=== PATIENT | male | born 1965 | race African-American/Black ===

== ENCOUNTER 2016-12-31 13:48 | Inpatient (IN) | payer OTHER ==
[2016-12-31 16:28] VITALS: BMI 23.4
--- NOTE | 2016-12-31 18:06 | HP ---
Admission ROS [facility] [place] [facility] Chief Complaint: I WANT TO GO TO REHAB Allergies/Adverse Reactions: Allergies Allergy/AdvReac Type Severity Reaction Status Date / Time No Known Allergies Allergy Verified 02/09/16 14:06 History of Present Illness: 51 YEARS OLD MALE WITH LONG HISTORY OF COCAINE NICOTINE DEPENDENCE, DENIES MEDICAL DENIES MENTAL ILLNESS IS ADMITTED TO REHAB Exam Limitations: No Limitations - Ebola screening Have you traveled outside of the country in the last 21 days: No (N) Have you had contact with anyone from an Ebola affected area: No Have you been sick,other than usual withdrawal symptoms: No Do you have a fever: No - Review of Systems Constitutional: Loss of Appetite EENT: reports: Dental Problems (UPPER AND LOWER DENTURE) Respiratory: reports: No Symptoms reported Cardiac: reports: No Symptoms Reported GI: reports: No Symptoms Reported : reports: No Symptoms Reported Musculoskeletal: reports: No Symptoms Reported Integumentary: reports: No Symptoms Reported Neuro: reports: No Symptoms reported Endocrine: reports: No Symptoms Reported Hematology: reports: No Symptoms Reported Psychiatric: reports: No Sypmtoms Reported, Judgement Intact, Mood/Affect Appropiate, Orientated x3 Other Systems: Reviewed and Negative Patient History - Patient Medical History Hx Anemia: No Hx Asthma: No Hx Chronic Obstructive Pulmonary Disease (COPD): No Hx Cancer: No Hx Cardiac Disorders: No Hx Congestive Heart Failure: No Hx Hypertension: No Hx Hypercholesterolemia: No Hx Pacemaker: No HX Cerebrovascular Accident: No Hx Seizures: No Hx Dementia: No Hx Diabetes: No Hx Gastrointestinal Disorders: No Hx Liver Disease: No Hx Genitourinary Disorders: No Hx Sexually Transmitted Disorders: No Hx Renal Disease (ESRD): No Hx Thyroid Disease: No Hx Human Immunodeficiency Virus (HIV): No (01/20 last) Hx Hepatitis C: No Hx Depression: Yes (LAST DOSE A YEAR AGO) Hx Suicide Attempt: No Hx Bipolar Disorder: No Hx Schizophrenia: No - Patient Surgical History Past Surgical History: No Hx Neurologic Surgery: No Hx Cataract Extraction: No Hx Cardiac Surgery: No Hx Lung Surgery: No Hx Breast Surgery: No Hx Breast Biopsy: No Hx Abdominal Surgery: No Hx Appendectomy: No Hx Cholecystectomy: No Hx Genitourinary Surgery: No Hx Orthopedic Surgery: No Other Surgical History: 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 History Hx Alcohol Use: No Hx Substance Use: Yes Substance Use Type: Cocaine Hx Substance Use Treatment: Yes - Substances Abused Cocaine Route: Smoking Frequency: 1-2 times per week Amount used: 5 G Age of first use: 21 Date of Last Use: 12/28/16 Family Disease History - Family Disease History Family Disease History: Diabetes: Mother (ALCOHOLIC), CA: Sister, Other: Father (ALCOHOLIC), Mother Admission Physical Exam [facility] - Vital Signs Vital Signs: Vital Signs - 24 hr 12/31/16 15:49 Temperature 97.9 F Pulse Rate 88 Respiratory 18 Rate Blood Pressure 114/71 - Physical General Appearance: Yes: No Apparent Distress, Appropriately Dressed, Thin HEENTM: Yes: Hearing grossly Normal, Normal ENT Inspection, Normocephalic, Normal Voice Respiratory: Yes: Chest Non-Tender, Lungs Clear, Normal Breath Sounds, No Respiratory Distress, No Accessory Muscle Use Neck: Yes: Supple, Trachea in good position Breast: Yes: Breasts Symetrical Cardiology: Yes: Regular Rhythm, Regular Rate, S1, S2 Abdominal: Yes: Normal Bowel Sounds, Non Tender, Soft Genitourinary: Yes: Within Normal Limits Back: Yes: Normal Inspection Musculoskeletal: Yes: full range of Motion, Gait Steady Extremities: Yes: Normal Inspection, Normal Range of Motion, Non-Tender Neurological: Yes: Fully Oriented, Alert, Motor Strength 5/5, Normal Mood/Affect , Normal Response Integumentary: Yes: Warm Lymphatic: Yes: Within Normal Limits - Diagnostic (1) Nicotine dependence Current Visit: Yes Status: Acute Qualifiers: Nicotine product type: cigarettes Substance use status: in withdrawal Qualified Code(s): F17.213 - Nicotine dependence, cigarettes, with withdrawal (2) Weight loss Current Visit: Yes Status: Acute (3) Cocaine dependence, uncomplicated Current Visit: Yes Status: Acute Cleared for Admission [facility] - Detox or Rehab [facility] Level of Care: Observation Bed Detox Regimen/Protocol: Not Applicable Claeared for Rehab Admission: Yes [facility] Breath Alcohol Content Breath Alcohol Content: 0 Urine Drug Screen - Results Drug Screen Negative: No Urine Drug Screen Results: LOGAN-Cocaine, TCA-Tricyclic Antidepress
[2016-12-31] MEDS ORDERED: P-EPHED 60MG/TRIPROLIDI 2.5MG TABLET PO PRN (18:08)
[2016-12-31] MEDS ORDERED: MENTHOL/PHENOL 1 EACH UD MM PRN (18:08)
[2016-12-31] MEDS ORDERED: MAGNESIUM HYDROX 2400MG/30ML ORAL SUSPENSION 30 ML CUP PO PRN (18:08)
[2016-12-31] MEDS ORDERED: NICOTINE POLACRILEX 2 MG GUM BC PRN (18:08)
[2016-12-31] MEDS ORDERED: MAGNESIUM CITRATE 300 ML BOTTLE PO PRN (18:08)
[2016-12-31] MEDS ORDERED: IBUPROFEN 400 MG TABLET (FP) PO PRN (18:08)
[2016-12-31] MEDS ORDERED: LOPERAMIDE HCL 2 MG CAPSULE PO PRN (18:08)
[2016-12-31] MEDS ORDERED: hydrOXYzine PAMOATE 50 MG CAPSULE (FP) PO PRN (18:08)
[2016-12-31] MEDS ORDERED: ACETAMINOPHEN 325 MG TABLET (FP) PO PRN (18:08)
[2016-12-31] MEDS ORDERED: guaiFENesin/D-METHORPHAN HB 10 ML UNIT-DOSE CUPS PO PRN (18:08)
[2016-12-31] MEDS: THIAMINE HCL 100 MG TABLET (FP) PO SCH (21:27)
[2016-12-31] MEDS: diphenhydrAMINE HCL 50 MG CAPSULE PO PRN (21:28)
[2017-01-01] MEDS: PRENATAL VITAMINS W/ FOLIC ACID TABLET (FP) PO SCH (09:48)
[2017-01-01] MEDS: NICOTINE 14 MG/24 HOURS TOPICAL PATCH TD SCH (09:49)
[2017-01-01 10:05] LABS: URINE APPEARANCE CLEAR; URINE BILIRUBIN NEGATIVE (NEGATIVE); URINE BLOOD NEGATIVE (NEGATIVE); URINE COLOR LTYELLOW; URINE GLUCOSE (UA) NEGATIVE (NEGATIVE); URINE KETONE NEGATIVE (NEGATIVE); URINE LEUK ESTERASE NEGATIVE (NEGATIVE); URINE NITRITE NEGATIVE (NEGATIVE); URINE PROTEIN NEGATIVE (NEGATIVE); URINE UROBILINOGEN NEGATIVE E.U./dl (0.2-1.0)
[2017-01-01 10:12] LABS: MCH 33.5 pg (25.7-33.7); MCHC 33.3 g/dl (32.0-35.9); MEAN CELL VOLUME 100.6 fl (80-96); MEAN PLT VOLUME 8.1 fl (7.5-11.1); PLATELET COUNT 210 K/MM3 (134-434); WHITE BLOOD COUNT 4.5 K/mm3 (4.0-10.0)
[2017-01-01 10:47] LABS: ALBUMIN 3.6 g/dl (3.4-5.0); ALK PHOS 63 U/L (45-117); ANION GAP 8 (8-16); BILIRUBIN,TOTAL 0.5 mg/dL (0.2-1.0); CALCIUM 8.4 mg/dL (8.5-10.1); CO2 28 mmol/L (21-32); GLUCOSE,RANDOM 86 mg/dL (74-106); SGOT/AST 18 U/L (15-37); SGPT/ALT 26 U/L (12-78); TOT PROT 6.2 g/dl (6.4-8.2)
--- NOTE | 2017-01-01 21:04 | EKG ---
Test Reason : Blood Pressure : / mmHG Vent. Rate : 079 BPM Atrial Rate : 079 BPM P-R Int : 148 ms QRS Dur : 082 ms QT Int : 392 ms P-R-T Axes : 058 061 053 degrees QTc Int : 449 ms NORMAL SINUS RHYTHM SEPTAL INFARCT , AGE UNDETERMINED ABNORMAL ECG NO PREVIOUS ECGS AVAILABLE Confirmed by GREG LO MD ([id number]) on 01/01/2017 9:03:52 PM Referred By: Confirmed By:GREG LO MD
[2017-01-01] MEDS: diphenhydrAMINE HCL 50 MG CAPSULE PO PRN ×2 (21:44→22:49)
[2017-01-01] MEDS: MAG HYDROX/AL HYDROX/SIMETH 30 ML UNIT-DOSE CUP PO PRN (21:44)
[2017-01-01] MEDS: THIAMINE HCL 100 MG TABLET (FP) PO SCH (21:44)
[2017-01-02] MEDS: NICOTINE 14 MG/24 HOURS TOPICAL PATCH TD SCH (10:03)
[2017-01-02] MEDS: PRENATAL VITAMINS W/ FOLIC ACID TABLET (FP) PO SCH (10:03)
[2017-01-02] MEDS: MAG HYDROX/AL HYDROX/SIMETH 30 ML UNIT-DOSE CUP PO PRN (20:58)
[2017-01-02] MEDS: THIAMINE HCL 100 MG TABLET (FP) PO SCH (20:59)
[2017-01-02] MEDS: diphenhydrAMINE HCL 50 MG CAPSULE PO PRN (22:56)
[2017-01-03] MEDS: PRENATAL VITAMINS W/ FOLIC ACID TABLET (FP) PO SCH (10:18)
[2017-01-03] MEDS: NICOTINE 14 MG/24 HOURS TOPICAL PATCH TD SCH (10:18)
[2017-01-03] MEDS: MAG HYDROX/AL HYDROX/SIMETH 30 ML UNIT-DOSE CUP PO PRN ×2 (10:38→17:29)
--- NOTE | 2017-01-03 11:06 | HP ---
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 Medical History: History of treatment for gonorrhea.Right sub-mandibular mass ( lipoma).Patient reports that he has a referral for surgery. Psychiatric History: No history of psychiatric hospitalizations.Mr Herrera continues his affiliation with [employer] [facility] (12-step).Not on any psychotropic medications.Mild insomnia is reported and the patient requests only benadryl at bedtime.No history of suicide attempts. Physical/Sexual Abuse/Trauma History: Patient denies. Additional Comment: Urine Drug Screen Results: LOGAN-Cocaine, TCA-Tricyclic Antidepressant.Noted. - Smoking Cessation. Smoking history: Current every day smoker. Have you smoked in the past 12 months: Yes. Aproximately how many cigarettes per day: 4. Cigars Per Day: 0. Hx Chewing Tobacco Use: No. Initiated information on smoking cessation: Yes. 'Breaking Loose' booklet given : 12/31/16. - Substance & Tx. History. Hx Alcohol Use: No. Hx Substance Use: Yes. Substance Use Type: Cocaine. Hx Substance Use Treatment: Yes. - Substances Abused. Cocaine. Route: Smoking. Frequency: 1-2 times per week. Amount used: 5 G. Age of first use: 21. Date of Last Use: 12/28/16. Patient confirms this pattern of substance use in my interview. Vital Signs: Vital Signs - 24 hr 01/03/17 01/03/17 01/03/17 00:30 03:30 06:51 Temperature 97.6 F Pulse Rate 61 Respiratory 18 18 18 Rate Blood Pressure 125/83 Allergies/Adverse Reactions: Allergies Allergy/AdvReac Type Severity Reaction Status Date / Time No Known Allergies Allergy Verified 12/31/16 18:24 - Substance Abuse/Tx History Hx Alcohol Use: Yes Hx Substance Use: Yes (nicotine,alcohol and crack) Substance Use Type: Alcohol, Cocaine Hx Substance Use Treatment: Yes - Admission Criteria Previous failed treatment: Yes Poor recovery environment: Yes Comorbidities: Yes Lacks judgement: Yes Mental Status Exam - Mental Status Exam Alert and Oriented to: Time, Place, Person Cognitive Function: Good Patient Appearance: Well Groomed Mood: Hopeful, Euthymic Affect: Appropriate, Normal Range Patient Behavior: Appropriate, Cooperative Speech Pattern: Clear, Appropriate Voice Loudness: Normal Thought Process: Intact, Goal Oriented Thought Disorder: Not Present Hallucinations: Denies Suicidal Ideation: Denies Homicidal Ideation: Denies Insight/Judgement: Poor Sleep: Fair Appetite: Good Muscle strength/Tone: Normal Gait/Station: Normal Psychiatric Findings - Problem List ([place] 1, 2,3) (1) Cocaine dependence, uncomplicated Current Visit: Yes Status: Acute (2) Alcohol dependence Current Visit: Yes Status: Acute (3) Nicotine dependence Current Visit: Yes Status: Acute Qualifiers: Nicotine product type: cigarettes Substance use status: in withdrawal Qualified Code(s): F17.213 - Nicotine dependence, cigarettes, with withdrawal (4) Lipoma of face Current Visit: Yes Status: Chronic (5) Insomnia Current Visit: Yes Status: Chronic - Initial Treatment Plan Initial Treatment Plan: Psychoeducation.Insomnia is addressed with benadryl 50 mg po hs prn at bedtime.Monitor daily progress.
[2017-01-03] MEDS: diphenhydrAMINE HCL 50 MG CAPSULE PO PRN (22:06)
[2017-01-03] MEDS: THIAMINE HCL 100 MG TABLET (FP) PO SCH (22:06)
[2017-01-04] MEDS: PRENATAL VITAMINS W/ FOLIC ACID TABLET (FP) PO SCH (10:02)
[2017-01-04] MEDS: NICOTINE 14 MG/24 HOURS TOPICAL PATCH TD SCH (10:02)
[2017-01-04] MEDS: diphenhydrAMINE HCL 50 MG CAPSULE PO PRN ×2 (22:19→23:34)
[2017-01-04] MEDS: THIAMINE HCL 100 MG TABLET (FP) PO SCH (22:19)
[2017-01-05] MEDS: PRENATAL VITAMINS W/ FOLIC ACID TABLET (FP) PO SCH (10:33)
[2017-01-05] MEDS: NICOTINE 14 MG/24 HOURS TOPICAL PATCH TD SCH (10:33)
[2017-01-05] MEDS: THIAMINE HCL 100 MG TABLET (FP) PO SCH (21:40)
[2017-01-05] MEDS: diphenhydrAMINE HCL 50 MG CAPSULE PO PRN ×2 (21:41→23:03)
[2017-01-06 07:34] VITALS: BP 139/91; PULSE 82; TEMP 97.5
--- NOTE | 2017-01-06 09:40 | PN ---
Psychiatric Progress Note Vital Signs: Vital Signs Period Temp Pulse Resp BP Sys/Shah Pulse Ox Last 24 Hr 97.5 F 82 18-18 139/91 Date of Session: 01/06/17 Chief Complaint:: Psychiatrist Discharge Note(AMA) HPI: Patient addressing Alcohol and Cocaine Dependence comorbid with Nicotine Dependence ROS: Lipoma of face Current Medications: Active Medications Generic Name Dose Route Start Last Admin Trade Name Freq PRN Reason Stop Dose Admin Acetaminophen 650 mg 12/31/16 18:08 Tylenol - PO Q4H PRN PAIN Al Hydroxide/Mg Hydroxide 30 ml 12/31/16 18:08 01/03/17 17:29 Mylanta Oral Suspension - PO 30 ml Q6H PRN Administration DYSPEPSIA Diphenhydramine HCl 50 mg 12/31/16 18:08 01/05/17 23:03 Benadryl - PO 50 mg HSMR1 PRN Administration INSOMNIA Eucalyptus/Menthol/Phenol/Sorbitol 1 each 12/31/16 18:08 Cepastat Lozenge - MM Q4H PRN SORE THROAT Guaifenesin 10 ml 12/31/16 18:08 Robitussin Dm - PO Q6H PRN COUGH Hydroxyzine Pamoate 50 mg 12/31/16 18:08 Vistaril - PO Q4H PRN AGITATION Ibuprofen 400 mg 12/31/16 18:08 Motrin - PO Q6H PRN SEVERE PAIN Loperamide HCl 4 mg 12/31/16 18:08 Imodium - PO Q6H PRN DIARRHEA Magnesium Citrate 300 ml 12/31/16 18:08 Citroma - PO Q48H PRN CONSTIPATION Magnesium Hydroxide 30 ml 12/31/16 18:08 Milk Of Magnesia - PO DAILY PRN CONSTIPATION Nicotine 14 mg 01/01/17 10:00 01/05/17 10:33 Nicoderm Patch - TD Not Given DAILY ABI Nicotine Polacrilex 2 mg 12/31/16 18:08 Nicorette Gum - BC Q2H PRN NICOTINE REPLACEMENT RX Multivit/Folic Acid/Iron 1 tab 01/01/17 10:00 01/05/17 10:33 Vitamins (Sjr) - PO 1 tab DAILY ABI Administration Pseudoephedrine/Triprolidine 1 combo 12/31/16 18:08 Actifed - PO TID PRN NASAL CONGESTION Thiamine HCl 100 mg 12/31/16 22:00 01/05/17 21:40 Vitamin B1 - PO 100 mg HS ABI Administration Current Side Effect: No Lab tests ordered: Yes Lab tests reviewed: Yes Provider note:: Patient requets to leave against medical advice. 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 I'm not ready for this yet" He will not elaborate more on his comment. He is determined to leave against medical advice despite being encouraged to stay and complete this program. He is stable for leaving against medical advice Total face to face time:: 25 Mental Status Exam - Mental Status Exam Alert and Oriented to: Time, Place, Person Cognitive Function: Fair Patient Appearance: Well Groomed Mood: Hopeful, Euthymic Affect: Appropriate Patient Behavior: Cooperative Speech Pattern: Clear Voice Loudness: Normal Thought Process: Intact Thought Disorder: Not Present Hallucinations: Denies Suicidal Ideation: Denies Homicidal Ideation: Denies Insight/Judgement: Poor Sleep: Fair Appetite: Good Muscle strength/Tone: Normal Gait/Station: Normal Psychiatric Treatment Plan - Problem List (1) Alcohol dependence Current Visit: Yes (2) Cocaine dependence, uncomplicated Current Visit: Yes (3) Nicotine dependence Current Visit: Yes Qualifiers: Nicotine product type: cigarettes Substance use status: in withdrawal Qualified Code(s): F17.213 - Nicotine dependence, cigarettes, with withdrawal (4) Lipoma of face Current Visit: Yes Initial treatment plan: Patient is leaving AMA
== END 2017-01-06 09:45 | disposition left against medical advice (07) | DRG 770 ==
LOC: YASAS 13:48 → Y3W 18:44
PROVIDERS: ADMIT Psychiatry & Neurology Psychiatry; ATTEND Psychiatry & Neurology Psychiatry
PROC: HZ42ZZZ Group Counseling for Substance Abuse Treatment, Cognitive-Behavioral (ICD-10-PCS; principal; 2017-01-06)
DX: F10.230 Alcohol dependence with withdrawal, uncomplicated (principal); F14.20 Cocaine dependence, uncomplicated; F17.213 Nicotine dependence, cigarettes, with withdrawal; G47.00 Insomnia, unspecified; D17.0 Benign lipomatous neoplasm of skin and subcutaneous tissue of head, face and neck; R63.4 Abnormal weight loss; Z68.23 Body mass index [BMI] 23.0-23.9, adult
CPT/HCPCS: 36415; 80053; 81003; 85027; 86593; 93005; 93010

== ENCOUNTER 2017-04-18 10:24 | Inpatient (IN) | payer OTHER ==
[2017-04-18 11:17] VITALS: BMI 22.8
--- NOTE | 2017-04-18 13:05 | HP ---
CIWA Score - CIWA Score Nausea/Vomitin Muscle Tremors: 3 Anxiety: 3 Agitation: 2 Paroxysmal Sweats: 2 Orientation: 0-Oriented Tacttile Disturbances: 1-Very Mild Itch/Numbness Auditory Disturbances: 1-Very Mild Visual Disturbances: 1-Very Mild Sensitivity Headache: 2-Mild CIWA-Ar Total Score: 18 Admission ROS [facility] - HPI Chief Complaint: I NEED HELP TO STOP DRINKING ALCOHOL,COCAINE Allergies/Adverse Reactions: Allergies Allergy/AdvReac Type Severity Reaction Status Date / Time No Known Allergies Allergy Verified 04/18/17 12:56 History of Present Illness: THIS 51 YEARS OLD MALE WITH ALCOHOL AND COCAINE DEPENDENCE,SEEKING HELP FOR DETOX,LAST REHAB IN [facility] 12/28/16 TO 01/06/17 SYNCOPE NICOTINE DEPENDENCE LIPOMA OF MANDIBULAR AREA FOR 3 YEARS LONGEST PERIOD OF SOBRIETY 3 YEARS - Ebola screening Have you traveled outside of the country in the last 21 days: No Have you had contact with anyone from an Ebola affected area: No Have you been sick,other than usual withdrawal symptoms: No Do you have a fever: No - Review of Systems Constitutional: Loss of Appetite, Malaise, Night Sweats, Changes in sleep, Weakness, Unintentional Wgt. Loss EENT: reports: Tearing, Nose Congestion, Other (MASS OF RIGHT MANDIBULAR AREA SIZE 5X3 CM,MOVABLE) Respiratory: reports: No Symptoms reported Cardiac: reports: No Symptoms Reported GI: reports: Diarrhea, Nausea, Vomiting, Abdominal cramping : reports: No Symptoms Reported Musculoskeletal: reports: Back Pain, Muscle Pain Integumentary: reports: Dryness Neuro: reports: Headache, Tremors Endocrine: reports: No Symptoms Reported Hematology: reports: No Symptoms Reported Psychiatric: reports: No Sypmtoms Reported, Judgement Intact, Mood/Affect Appropiate, Orientated x3 Patient History - Patient Medical History Hx Anemia: No Hx Asthma: No Hx Chronic Obstructive Pulmonary Disease (COPD): No Hx Cancer: No Hx Cardiac Disorders: No Hx Congestive Heart Failure: No Hx Hypertension: No Hx Hypercholesterolemia: No Hx Pacemaker: No HX Cerebrovascular Accident: No Hx Seizures: No Hx Dementia: No Hx Diabetes: No Hx Gastrointestinal Disorders: No Hx Liver Disease: No Hx Genitourinary Disorders: No Hx Sexually Transmitted Disorders: No Hx Renal Disease (ESRD): No Hx Thyroid Disease: No Hx Human Immunodeficiency Virus (HIV): No (LAST 01/21 NEGATIVE) Hx Hepatitis C: No Hx Depression: No Hx Suicide Attempt: No Hx Bipolar Disorder: No Hx Schizophrenia: No Other Medical History: NO SUICIDAL,NO HOMICIDAL - Patient Surgical History Past Surgical History: No Hx Neurologic Surgery: No Hx Cataract Extraction: No Hx Cardiac Surgery: No Hx Lung Surgery: No Hx Breast Surgery: No Hx Breast Biopsy: No Hx Abdominal Surgery: No Hx Appendectomy: No Hx Cholecystectomy: No Hx Genitourinary Surgery: No Hx Section: No Hx Orthopedic Surgery: No Anesthesia Reaction: No - PPD History Previous Implant?: Yes Documented Results: Positive w/o proof Date: 02/11/16 Results: 0 mm PPD to be Administered?: Yes - Smoking Cessation Smoking history: Current every day smoker Have you smoked in the past 12 months: Yes Aproximately how many cigarettes per day: 4 Cigars Per Day: 0 Hx Chewing Tobacco Use: No Initiated information on smoking cessation: Yes 'Breaking Loose' booklet given: 04/18/17 - Substance & Tx. History Hx Alcohol Use: Yes Hx Substance Use: Yes Substance Use Type: Alcohol, Cocaine Hx Substance Use Treatment: Yes ([facility] 12/27/16 TO 01/21/17) - Substances Abused Alcohol Route: Oral Frequency: Daily Amount used: 6pk beer/ 1 pint bourbon Age of first use: 17 Date of Last Use: 04/18/17 Crack Route: Smoking Frequency: Daily Amount used: 2 grams Age of first use: 19 Date of Last Use: 04/17/17 Family Disease History - Family Disease History Family Disease History: Diabetes: Mother (ALCOHOLIC ), CA: Sister, Other : Father (ALCOHOLIC), Mother Admission Physical Exam [facility] - Vital Signs Vital Signs: Vital Signs - 24 hr 04/18/17 11:11 Temperature 96.8 F L Pulse Rate 106 H Respiratory 18 Rate Blood Pressure 123/71 - Physical General Appearance: Yes: Moderate Distress, Tremorous, Irritable, Sweating, Anxious HEENTM: Yes: Hearing grossly Normal, Normal ENT Inspection, MYLES, Pharynx Normal , Other (MASS OF RIGHT MANDIBULAR AREA SIZE 5X3 CMS MOVABLE NO PAIN) Respiratory: Yes: Lungs Clear, Normal Breath Sounds, No Respiratory Distress Neck: Yes: Within Normal Limits, Trachea in good position Breast: Yes: Within Normal Limits Cardiology: Yes: Within Normal Limits, Regular Rhythm, Regular Rate, S1, S2 Abdominal: Yes: Within Normal Limits, Normal Bowel Sounds, Non Tender, Flat, Soft Genitourinary: Yes: Within Normal Limits Back: Yes: Within Normal Limits Musculoskeletal: Yes: Within Normal Limits, Back pain, Muscle Pain Extremities: Yes: Normal Inspection, Normal Range of Motion, Tremors 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 NML intact, Fully Oriented, Alert, Motor Strength 5/5, Normal Mood/Affect Integumentary: Yes: Dry Lymphatic: Yes: Within Normal Limits - Diagnostic (1) Alcohol dependence with uncomplicated withdrawal Current Visit: No Status: Acute (2) Cocaine dependence, uncomplicated Current Visit: No Status: Acute (3) Nicotine dependence Current Visit: No Status: Acute Qualifiers: Nicotine product type: cigarettes Substance use status: in withdrawal Qualified Code(s): F17.213 - Nicotine dependence, cigarettes, with withdrawal (4) Syncope Current Visit: No Status: Acute (5) Weight loss Current Visit: No Status: Acute (6) Lipoma of face Current Visit: No Status: Chronic Cleared for Admission [facility] - Detox or Rehab [facility] Level of Care: Medically Managed Detox Regimen/Protocol: Librium [facility] Breath Alcohol Content Breath Alcohol Content: 0.20 Urine Drug Screen - Results Drug Screen Negative: No Urine Drug Screen Results: LOGAN-Cocaine, TCA-Tricyclic Antidepress
[2017-04-18] MEDS ORDERED: MAGNESIUM CITRATE 300 ML BOTTLE PO PRN (13:17)
[2017-04-18] MEDS ORDERED: P-EPHED 60MG/TRIPROLIDI 2.5MG TABLET PO PRN (13:17)
[2017-04-18] MEDS ORDERED: MAGNESIUM HYDROX 2400MG/30ML ORAL SUSPENSION 30 ML CUP PO PRN (13:17)
[2017-04-18] MEDS ORDERED: MENTHOL/PHENOL 1 EACH UD MM PRN (13:17)
[2017-04-18] MEDS ORDERED: hydrOXYzine PAMOATE 50 MG CAPSULE (FP) PO PRN (13:17)
[2017-04-18] MEDS ORDERED: LOPERAMIDE HCL 2 MG CAPSULE PO PRN (13:17)
[2017-04-18] MEDS ORDERED: ACETAMINOPHEN 325 MG TABLET (FP) PO PRN (13:17)
[2017-04-18] MEDS ORDERED: guaiFENesin/D-METHORPHAN HB 10 ML UNIT-DOSE CUPS PO PRN (13:17)
[2017-04-18] MEDS ORDERED: IBUPROFEN 400 MG TABLET (FP) PO PRN (13:17)
[2017-04-18] MEDS ORDERED: chlordiazePOXIDE HCL 25 MG CAPSULE PO PRN (13:17)
[2017-04-18] MEDS ORDERED: chlordiazePOXIDE HCL 25 MG CAPSULE PO ONE (14:02)
[2017-04-18] MEDS: chlordiazePOXIDE HCL 25 MG CAPSULE PO SCH ×2 (17:20→22:10)
[2017-04-18 17:37] LABS: URINE APPEARANCE CLEAR; URINE BILIRUBIN NEGATIVE (NEGATIVE); URINE BLOOD NEGATIVE (NEGATIVE); URINE COLOR AMBER; URINE GLUCOSE (UA) NEGATIVE (NEGATIVE); URINE KETONE 1+ (NEGATIVE); URINE LEUK ESTERASE NEGATIVE (NEGATIVE); URINE NITRITE NEGATIVE (NEGATIVE); URINE UROBILINOGEN 2.0 E.U/dl E.U./dl (0.2-1.0)
[2017-04-18 18:28] LABS: URINE PROTEIN 1+ (NEGATIVE)
[2017-04-18 18:29] LABS: URINE RBC 3 /hpf (0-3); URINE WBC 3 /hpf (3-5)
[2017-04-18 18:30] LABS: URINE BACTERIA RARE /hpf (NONE SEEN); URINE HYALINE CAST 3 /lpf; URINE MUCUS MANY
[2017-04-18] MEDS: THIAMINE HCL 100 MG TABLET (FP) PO SCH (22:10)
[2017-04-18] MEDS: diphenhydrAMINE HCL 50 MG CAPSULE PO PRN (23:54)
[2017-04-19] MEDS: chlordiazePOXIDE HCL 25 MG CAPSULE PO SCH ×4 (05:48→22:05)
[2017-04-19 10:06] LABS: MCH 33.4 pg (25.7-33.7); MCHC 33.7 g/dl (32.0-35.9); MEAN CELL VOLUME 99.3 fl (80-96); MEAN PLT VOLUME 8.4 fl (7.5-11.1); PLATELET COUNT 219 K/MM3 (134-434); WHITE BLOOD COUNT 3.6 K/mm3 (4.0-10.0)
[2017-04-19] MEDS: PRENATAL VITAMINS W/ FOLIC ACID TABLET (FP) PO SCH (10:10)
[2017-04-19] MEDS ORDERED: ONDANSETRON *ODT* 4 MG TABLET SL PRN (10:15)
--- NOTE | 2017-04-19 10:15 | PN ---
[facility] CIWA - CIWA Score Nausea/Vomitin-No Nausea/No Vomiting Muscle Tremors: 4-Moderate,w/Arms Extend Anxiety: 4-Mod. Anxious/Guarded Agitation: 4-Moderately Restless Paroxysmal Sweats: 1-Minimal Palms Moist Orientation: 0-Oriented Tacttile Disturbances: 3-Moderate Itch/Numb/Burn Auditory Disturbances: 0-None Visual Disturbances: 0-None Headache: 0-None Present CIWA-Ar Total Score: 16 [facility]HS Progress Note (SOAP) Subjective: ANXIETY,TREMORS,NAUSEA,INTERMITTENT SLEEP. Objective: 04/19/17 10:14 Vital Signs Temperature 97.0 F L 04/19/17 09:25 Pulse Rate 79 04/19/17 09:25 Respiratory Rate 18 04/19/17 09:25 Blood Pressure 128/82 04/19/17 09:25 O2 Sat by Pulse Oximetry (%) Laboratory Last Values WBC 3.6 K/mm3 (4.0-10.0) L 04/19/17 06:00 RBC 4.40 M/mm3 (4.00-5.60) 04/19/17 06:00 Hgb 14.7 GM/dL (11.7-16.9) D 04/19/17 06:00 Hct 43.7 % (35.4-49) 04/19/17 06:00 MCV 99.3 fl (80-96) H 04/19/17 06:00 MCHC 33.7 g/dl (32.0-35.9) 04/19/17 06:00 RDW 13.0 % (11.9-15.9) 04/19/17 06:00 Plt Count 219 K/MM3 (134-434) 04/19/17 06:00 MPV 8.4 fl (7.5-11.1) 04/19/17 06:00 Urine Color Jennifer 04/18/17 15:00 Urine Appearance Clear 04/18/17 15:00 Urine pH 5.0 (5.0-8.0) 04/18/17 15:00 Ur Specific [place] >= 1.030 (1.005-1.025) H 04/18/17 15:00 Urine Protein 1+ (NEGATIVE) H 04/18/17 15:00 Urine Glucose (UA) Negative (NEGATIVE) 04/18/17 15:00 Urine Ketones 1+ (NEGATIVE) H 04/18/17 15:00 Urine Blood Negative (NEGATIVE) 04/18/17 15:00 Urine Nitrite Negative (NEGATIVE) 04/18/17 15:00 Urine Bilirubin Negative (NEGATIVE) 04/18/17 15:00 Urine Urobilinogen 2.0 e.u/dl E.U./dl (0.2-1.0) 04/18/17 15:00 Ur Leukocyte Esterase Negative (NEGATIVE) 04/18/17 15:00 Urine RBC 3 /hpf (0-3) 04/18/17 15:00 Urine WBC 3 /hpf (3-5) 04/18/17 15:00 Ur Epithelial Cells Rare /hpf (FEW) 04/18/17 15:00 Urine Bacteria Rare /hpf (NONE SEEN) 04/18/17 15:00 Hyaline Casts 3 /lpf 04/18/17 15:00 Urine Mucus Many 04/18/17 15:00 Assessment: 04/19/17 10:14 WITHDRAWAL SX Plan: CONTINUE DETOX
[2017-04-19 10:54] LABS: ALBUMIN 4.3 g/dl (3.4-5.0); CALCIUM 8.9 mg/dL (8.5-10.1); COCKROFT - GAULT 63.96; CREATININE 1.3 mg/dL (0.7-1.3); TOT PROT 7.2 g/dl (6.4-8.2)
--- NOTE | 2017-04-19 11:00 | EKG ---
Test Reason : Blood Pressure : / mmHG Vent. Rate : 087 BPM Atrial Rate : 087 BPM P-R Int : 138 ms QRS Dur : 082 ms QT Int : 376 ms P-R-T Axes : 063 065 065 degrees QTc Int : 452 ms NORMAL SINUS RHYTHM NONSPECIFIC T WAVE ABNORMALITY ABNORMAL ECG WHEN COMPARED WITH ECG OF 31-DEC-2016 23:09, T WAVE VARIATION Confirmed by FAITH CUEVAS MD ([id number]) on 04/19/2017 10:59:45 AM Referred By: Mina Lowe Confirmed By:FAITH CUEVAS MD
[2017-04-19] MEDS: MAG HYDROX/AL HYDROX/SIMETH 30 ML UNIT-DOSE CUP PO PRN (20:24)
[2017-04-19] MEDS: THIAMINE HCL 100 MG TABLET (FP) PO SCH (22:05)
[2017-04-19] MEDS: diphenhydrAMINE HCL 50 MG CAPSULE PO PRN (23:30)
[2017-04-20] MEDS: chlordiazePOXIDE HCL 25 MG CAPSULE PO SCH ×2 (05:35→10:02)
[2017-04-20] MEDS: MAG HYDROX/AL HYDROX/SIMETH 30 ML UNIT-DOSE CUP PO PRN (05:36)
--- NOTE | 2017-04-20 09:53 | PN ---
[facility] CIWA - CIWA Score Nausea/Vomitin (DIARRHEA) Muscle Tremors: 4-Moderate,w/Arms Extend Anxiety: 3 Agitation: 4-Moderately Restless Paroxysmal Sweats: 1-Minimal Palms Moist Orientation: 0-Oriented Tacttile Disturbances: 2-Mild Itch/Numbness/Burn Auditory Disturbances: 0-None Visual Disturbances: 0-None Headache: 0-None Present CIWA-Ar Total Score: 19 S Progress Note (SOAP) Subjective: ANXIETY,"JITTERY',DIARRHEA. Objective: 04/20/17 09:52 Vital Signs Temperature 96.9 F L 04/20/17 09:41 Pulse Rate 89 04/20/17 09:41 Respiratory Rate 18 04/20/17 09:41 Blood Pressure 135/85 04/20/17 09:41 O2 Sat by Pulse Oximetry (%) Laboratory Last Values WBC 3.6 K/mm3 (4.0-10.0) L 04/19/17 06:00 RBC 4.40 M/mm3 (4.00-5.60) 04/19/17 06:00 Hgb 14.7 GM/dL (11.7-16.9) D 04/19/17 06:00 Hct 43.7 % (35.4-49) 04/19/17 06:00 MCV 99.3 fl (80-96) H 04/19/17 06:00 MCHC 33.7 g/dl (32.0-35.9) 04/19/17 06:00 RDW 13.0 % (11.9-15.9) 04/19/17 06:00 Plt Count 219 K/MM3 (134-434) 04/19/17 06:00 MPV 8.4 fl (7.5-11.1) 04/19/17 06:00 Sodium 141 mmol/L (136-145) 04/19/17 06:00 Potassium 3.6 mmol/L (3.5-5.1) 04/19/17 06:00 Chloride 102 mmol/L (98-107) 04/19/17 06:00 Carbon Dioxide 24 mmol/L (21-32) 04/19/17 06:00 Anion Gap 15 (8-16) 04/19/17 06:00 BUN 13 mg/dL (7-18) 04/19/17 06:00 Creatinine 1.3 mg/dL (0.7-1.3) D 04/19/17 06:00 Creat Clearance w eGFR 57.97 (>60) 04/19/17 06:00 Random Glucose 138 mg/dL (74-106) H D 04/19/17 06:00 Calcium 8.9 mg/dL (8.5-10.1) 04/19/17 06:00 Total Bilirubin 1.0 mg/dL (0.2-1.0) D 04/19/17 06:00 AST 17 U/L (15-37) 04/19/17 06:00 ALT 24 U/L (12-78) 04/19/17 06:00 Alkaline Phosphatase 72 U/L (45-117) 04/19/17 06:00 Total Protein 7.2 g/dl (6.4-8.2) 04/19/17 06:00 Albumin 4.3 g/dl (3.4-5.0) 04/19/17 06:00 Urine Color Jennifer 04/18/17 15:00 Urine Appearance Clear 04/18/17 15:00 Urine pH 5.0 (5.0-8.0) 04/18/17 15:00 Ur Specific [place] >= 1.030 (1.005-1.025) H 04/18/17 15:00 Urine Protein 1+ (NEGATIVE) H 04/18/17 15:00 Urine Glucose (UA) Negative (NEGATIVE) 04/18/17 15:00 Urine Ketones 1+ (NEGATIVE) H 04/18/17 15:00 Urine Blood Negative (NEGATIVE) 04/18/17 15:00 Urine Nitrite Negative (NEGATIVE) 04/18/17 15:00 Urine Bilirubin Negative (NEGATIVE) 04/18/17 15:00 Urine Urobilinogen 2.0 e.u/dl E.U./dl (0.2-1.0) 04/18/17 15:00 Ur Leukocyte Esterase Negative (NEGATIVE) 04/18/17 15:00 Urine RBC 3 /hpf (0-3) 04/18/17 15:00 Urine WBC 3 /hpf (3-5) 04/18/17 15:00 Ur Epithelial Cells Rare /hpf (FEW) 04/18/17 15:00 Urine Bacteria Rare /hpf (NONE SEEN) 04/18/17 15:00 Hyaline Casts 3 /lpf 04/18/17 15:00 Urine Mucus Many 04/18/17 15:00 RPR Titer Nonreactive (NONREACTIVE) 04/19/17 06:00 Assessment: 04/20/17 09:52 WITHDRAWAL SX Plan: CONTINUE DETOX
[2017-04-20] MEDS: PRENATAL VITAMINS W/ FOLIC ACID TABLET (FP) PO SCH (10:02)
[2017-04-20] MEDS: chlordiazePOXIDE 5 MG CAPSULE PO SCH ×2 (17:15→22:01)
[2017-04-20] MEDS: diphenhydrAMINE HCL 50 MG CAPSULE PO PRN (22:01)
[2017-04-20] MEDS: THIAMINE HCL 100 MG TABLET (FP) PO SCH (22:01)
[2017-04-21] MEDS: chlordiazePOXIDE 5 MG CAPSULE PO SCH ×2 (05:30→10:05)
[2017-04-21] MEDS: PRENATAL VITAMINS W/ FOLIC ACID TABLET (FP) PO SCH (10:05)
--- NOTE | 2017-04-21 11:31 | PN ---
[facility] Progress Note (SOAP) Subjective: ANXIETY, SWEATS, INTERMITTENT SLEEP. Objective: 04/21/17 11:31 Vital Signs Temperature 97.0 F L 04/21/17 09:06 Pulse Rate 89 04/21/17 09:06 Respiratory Rate 18 04/21/17 09:06 Blood Pressure 139/89 04/21/17 09:06 O2 Sat by Pulse Oximetry (%) Assessment: 04/21/17 11:31 WITHDRAWAL SX Plan: CONTINUE DETOX
[2017-04-21] MEDS: MAG HYDROX/AL HYDROX/SIMETH 30 ML UNIT-DOSE CUP PO PRN (17:25)
[2017-04-21] MEDS: chlordiazePOXIDE HCL 10 MG CAPSULE PO SCH ×2 (17:25→22:03)
[2017-04-21] MEDS: THIAMINE HCL 100 MG TABLET (FP) PO SCH (22:03)
[2017-04-21] MEDS: diphenhydrAMINE HCL 50 MG CAPSULE PO PRN ×2 (22:03→23:38)
[2017-04-22] MEDS: chlordiazePOXIDE HCL 10 MG CAPSULE PO SCH ×2 (05:50→11:55)
[2017-04-22 06:15] VITALS: BP 130/88; PULSE 79; TEMP 96.3
[2017-04-22] MEDS: PRENATAL VITAMINS W/ FOLIC ACID TABLET (FP) PO SCH (09:39)
--- NOTE | 2017-04-22 09:49 | DS ---
[facility] Detox Discharge Summary Admission Date: 04/18/17 Discharge Date: 04/22/17 - History Present History: Alcohol Dependence Pertinent Past History: LIPOMA RIGHT JAW - Physical Exam Results Vital Signs: Vital Signs Temperature 96.3 F L 04/22/17 06:14 Pulse Rate 79 04/22/17 06:14 Respiratory Rate 18 04/22/17 06:14 Blood Pressure 130/88 04/22/17 06:14 O2 Sat by Pulse Oximetry (%) Pertinent Admission Physical Exam Findings: WITHDRAWAL SX Laboratory Last Values WBC 3.6 K/mm3 (4.0-10.0) L 04/19/17 06:00 RBC 4.40 M/mm3 (4.00-5.60) 04/19/17 06:00 Hgb 14.7 GM/dL (11.7-16.9) D 04/19/17 06:00 Hct 43.7 % (35.4-49) 04/19/17 06:00 MCV 99.3 fl (80-96) H 04/19/17 06:00 MCHC 33.7 g/dl (32.0-35.9) 04/19/17 06:00 RDW 13.0 % (11.9-15.9) 04/19/17 06:00 Plt Count 219 K/MM3 (134-434) 04/19/17 06:00 MPV 8.4 fl (7.5-11.1) 04/19/17 06:00 Sodium 141 mmol/L (136-145) 04/19/17 06:00 Potassium 3.6 mmol/L (3.5-5.1) 04/19/17 06:00 Chloride 102 mmol/L (98-107) 04/19/17 06:00 Carbon Dioxide 24 mmol/L (21-32) 04/19/17 06:00 Anion Gap 15 (8-16) 04/19/17 06:00 BUN 13 mg/dL (7-18) 04/19/17 06:00 Creatinine 1.3 mg/dL (0.7-1.3) D 04/19/17 06:00 Creat Clearance w eGFR 57.97 (>60) 04/19/17 06:00 Random Glucose 138 mg/dL (74-106) H D 04/19/17 06:00 Calcium 8.9 mg/dL (8.5-10.1) 04/19/17 06:00 Total Bilirubin 1.0 mg/dL (0.2-1.0) D 04/19/17 06:00 AST 17 U/L (15-37) 04/19/17 06:00 ALT 24 U/L (12-78) 04/19/17 06:00 Alkaline Phosphatase 72 U/L (45-117) 04/19/17 06:00 Total Protein 7.2 g/dl (6.4-8.2) 04/19/17 06:00 Albumin 4.3 g/dl (3.4-5.0) 04/19/17 06:00 Urine Color Jennifer 04/18/17 15:00 Urine Appearance Clear 04/18/17 15:00 Urine pH 5.0 (5.0-8.0) 04/18/17 15:00 Ur Specific [place] >= 1.030 (1.005-1.025) H 04/18/17 15:00 Urine Protein 1+ (NEGATIVE) H 04/18/17 15:00 Urine Glucose (UA) Negative (NEGATIVE) 04/18/17 15:00 Urine Ketones 1+ (NEGATIVE) H 04/18/17 15:00 Urine Blood Negative (NEGATIVE) 04/18/17 15:00 Urine Nitrite Negative (NEGATIVE) 04/18/17 15:00 Urine Bilirubin Negative (NEGATIVE) 04/18/17 15:00 Urine Urobilinogen 2.0 e.u/dl E.U./dl (0.2-1.0) 04/18/17 15:00 Ur Leukocyte Esterase Negative (NEGATIVE) 04/18/17 15:00 Urine RBC 3 /hpf (0-3) 04/18/17 15:00 Urine WBC 3 /hpf (3-5) 04/18/17 15:00 Ur Epithelial Cells Rare /hpf (FEW) 04/18/17 15:00 Urine Bacteria Rare /hpf (NONE SEEN) 04/18/17 15:00 Hyaline Casts 3 /lpf 04/18/17 15:00 Urine Mucus Many 04/18/17 15:00 RPR Titer Nonreactive (NONREACTIVE) 04/19/17 06:00 - Treatment Hospital Course: Detox Protocol Followed, Detoxed Safely, Responded well, Discharged Condition Good, Rehab Referral Accepted Patient has Accepted a Rehab Referral to: [facility] - Medication Discharge Medications: Ambulatory Orders Diphenhydramine [Benadryl Capsule -] 50 mg PO HS #30 capsule 03/10/16 - Diagnosis (1) Alcohol dependence with uncomplicated withdrawal Current Visit: Yes Status: Acute (2) Cocaine dependence, uncomplicated Current Visit: Yes Status: Acute (3) Nicotine dependence Current Visit: Yes Status: Acute Qualifiers: Nicotine product type: cigarettes Substance use status: in withdrawal Qualified Code(s): F17.213 - Nicotine dependence, cigarettes, with withdrawal (4) Weight loss Current Visit: Yes Status: Acute (5) Lipoma of face Current Visit: Yes Status: Chronic - AMA Did Patient Leave Against Medical Advice: No
== END 2017-04-22 13:40 | disposition home or self-care (01) | DRG 774 ==
LOC: YASAS 10:24 → Y3N 13:53
PROVIDERS: ADMIT Internal Medicine; ATTEND Internal Medicine
PROC: HZ2ZZZZ Detoxification Services for Substance Abuse Treatment (ICD-10-PCS; principal; 2017-04-18)
DX: F10.230 Alcohol dependence with withdrawal, uncomplicated (principal); F14.20 Cocaine dependence, uncomplicated; F17.213 Nicotine dependence, cigarettes, with withdrawal; D17.0 Benign lipomatous neoplasm of skin and subcutaneous tissue of head, face and neck; Z87.898 Personal history of other specified conditions; Z86.79 Personal history of other diseases of the circulatory system
CPT/HCPCS: 36415; 80053; 81003; 81015; 85027; 86593; 93005; 93010

== ENCOUNTER 2021-04-21 10:27 | Inpatient (IN) | payer OTHER ==
[2021-04-21 11:33] VITALS: BMI 23.5
[2021-04-21] MEDS ORDERED: MAGNESIUM CITRATE 300 ML BOTTLE PO PRN (13:10)
[2021-04-21] MEDS ORDERED: ONDANSETRON *ODT* 4 MG TABLET SL PRN (13:10)
[2021-04-21] MEDS ORDERED: ACETAMINOPHEN 325 MG TABLET (FP) PO PRN ×2 (13:10)
[2021-04-21] MEDS ORDERED: METHOCARBAMOL 500 MG TABLET PO PRN (13:10)
[2021-04-21] MEDS ORDERED: NICOTINE POLACRILEX 2 MG GUM BUC PRN (13:10)
[2021-04-21] MEDS ORDERED: MAG HYDROX/AL HYDROX/SIMETH 30 ML UNIT-DOSE CUP PO PRN (13:10)
[2021-04-21] MEDS ORDERED: MAGNESIUM HYDROX 2400MG/30ML ORAL SUSPENSION 30 ML CUP PO PRN (13:10)
[2021-04-21] MEDS ORDERED: MENTHOL/PHENOL 1 EACH UD MM PRN (13:10)
[2021-04-21] MEDS ORDERED: BISMUTH SUBSALICYLATE 524 MG/30 ML PO PRN (13:10)
[2021-04-21] MEDS ORDERED: diazePAM 5 MG TABLET PO PRN (13:10)
[2021-04-21] MEDS ORDERED: IBUPROFEN 400 MG TABLET (FP) PO PRN (13:10)
[2021-04-21] MEDS: hydrOXYzine PAMOATE 25 MG CAPSULE (FP) PO SCH ×3 (13:56→22:31)
[2021-04-21] MEDS: PRENATAL VITAMINS W/ FOLIC ACID TABLET (FP) PO SCH (13:56)
[2021-04-21] MEDS: diazePAM 5 MG TABLET PO SCH ×3 (13:57→22:31)
[2021-04-21 15:23] LABS: BLOOD UREA NITROGEN 15.6 mg/dL (7-18)
[2021-04-21 15:25] LABS: ALBUMIN 4.8 g/dl (3.4-5.0); CALCIUM 9.6 mg/dL (8.5-10.1)
[2021-04-21 15:28] LABS: BILIRUBIN,TOTAL 0.5 mg/dL (0.2-1); CREATININE 1.4 mg/dL (0.55-1.3)
[2021-04-21 15:29] LABS: TOT PROT 8.3 g/dl (6.4-8.2)
[2021-04-21 15:40] LABS: HEMATOCRIT 44.9 % (35.4-49); HEMOGLOBIN 15.3 GM/dL (11.7-16.9); MCH 33.5 pg (25.7-33.7); MEAN CELL VOLUME 98.3 fl (80-96); MEAN PLT VOLUME 7.9 fl (7.5-11.1); PLATELET COUNT 311 10^3/uL (134-434); RBC 4.57 M/mm3 (4.00-5.60); RDW 13.6 % (11.9-15.9); WHITE BLOOD COUNT 7.1 K/mm3 (4.0-10.0)
[2021-04-21] MEDS ORDERED: diphenhydrAMINE HCL 50 MG CAPSULE PO SCH (22:00)
[2021-04-21] MEDS: THIAMINE HCL 100 MG TABLET (FP) PO SCH (22:30)
[2021-04-21] MEDS: MELATONIN 5 MG TABLETS PO SCH (22:31)
[2021-04-21] MEDS: hydrOXYzine PAMOATE 50 MG CAPSULE (FP) PO PRN (22:32)
[2021-04-22] MEDS: hydrOXYzine PAMOATE 50 MG CAPSULE (FP) PO PRN (05:26)
[2021-04-22] MEDS: diazePAM 5 MG TABLET PO SCH ×4 (05:27→22:51)
[2021-04-22] MEDS: hydrOXYzine PAMOATE 25 MG CAPSULE (FP) PO SCH ×3 (05:27→14:14)
[2021-04-22] MEDS: HYDROCHLOROTHIAZIDE 25 MG TABLET (FP) PO SCH (10:10)
[2021-04-22] MEDS: PRENATAL VITAMINS W/ FOLIC ACID TABLET (FP) PO SCH (11:02)
[2021-04-22] MEDS: POTASSIUM CHLORIDE ORAL LIQUID 20 MEQ/15 ML PO SCH ×2 (11:04→22:51)
[2021-04-22] MEDS: MELATONIN 5 MG TABLETS PO SCH (22:51)
[2021-04-22] MEDS: THIAMINE HCL 100 MG TABLET (FP) PO SCH (22:51)
[2021-04-23] MEDS: diazePAM 5 MG TABLET PO SCH ×3 (05:33→22:34)
[2021-04-23] MEDS: PRENATAL VITAMINS W/ FOLIC ACID TABLET (FP) PO SCH (10:15)
[2021-04-23] MEDS: HYDROCHLOROTHIAZIDE 25 MG TABLET (FP) PO SCH (10:15)
[2021-04-23] MEDS: POTASSIUM CHLORIDE ORAL LIQUID 20 MEQ/15 ML PO SCH (10:15)
[2021-04-23 11:19] LABS: CALCIUM 9.2 mg/dL (8.5-10.1)
[2021-04-23 11:20] LABS: BLOOD UREA NITROGEN 14.9 mg/dL (7-18)
[2021-04-23 11:24] LABS: CREATININE 1.1 mg/dL (0.55-1.3)
[2021-04-23 14:10] LABS: SARS-CoV-2 NAA Not Detected (Not Detected)
[2021-04-23] MEDS: THIAMINE HCL 100 MG TABLET (FP) PO SCH (22:35)
[2021-04-23] MEDS: MELATONIN 5 MG TABLETS PO SCH (22:35)
[2021-04-23] MEDS: hydrOXYzine PAMOATE 50 MG CAPSULE (FP) PO PRN (22:36)
[2021-04-24] MEDS ORDERED: diazePAM 5 MG TABLET PO SCH (06:00)
[2021-04-24] MEDS: PRENATAL VITAMINS W/ FOLIC ACID TABLET (FP) PO SCH (09:26)
[2021-04-24] MEDS: HYDROCHLOROTHIAZIDE 25 MG TABLET (FP) PO SCH (09:26)
[2021-04-24 10:54] VITALS: BP 123/88; PULSE 78; TEMP 96.9
[2021-04-25] MEDS ORDERED: diazePAM 5 MG TABLET PO ONE (06:00)
== END 2021-04-24 11:16 | disposition home or self-care (01) | DRG 774 ==
LOC: YASAS 10:27 → Y3N 12:20
PROVIDERS: ADMIT Allergy & Immunology; ATTEND Allergy & Immunology
PROC: HZ2ZZZZ Detoxification Services for Substance Abuse Treatment (ICD-10-PCS; principal; 2021-04-21)
DX: F10.230 Alcohol dependence with withdrawal, uncomplicated (principal); F14.20 Cocaine dependence, uncomplicated; F17.210 Nicotine dependence, cigarettes, uncomplicated; F19.282 Other psychoactive substance dependence with psychoactive substance-induced sleep disorder; G47.00 Insomnia, unspecified; I10 Essential (primary) hypertension; D17.0 Benign lipomatous neoplasm of skin and subcutaneous tissue of head, face and neck; R45.89 Other symptoms and signs involving emotional state; R63.4 Abnormal weight loss; Z68.23 Body mass index [BMI] 23.0-23.9, adult; Z86.19 Personal history of other infectious and parasitic diseases; Z56.0 Unemployment, unspecified
CPT/HCPCS: 36415; 80048; 80053; 82947; 85027; 86780; C9803; U0003; U0005

== ENCOUNTER 2022-05-17 12:22 | Inpatient (IN) | payer OTHER ==
[2022-05-17 14:34] VITALS: BMI 24.3
[2022-05-17] MEDS ORDERED: P-EPHED 60MG/TRIPROLIDI 2.5MG TABLET PO PRN (14:42)
[2022-05-17] MEDS ORDERED: MAGNESIUM HYDROX 2400MG/30ML ORAL SUSPENSION 30 ML CUP PO PRN (14:42)
[2022-05-17] MEDS ORDERED: LOPERAMIDE HCL 2 MG CAPSULE PO PRN (14:42)
[2022-05-17] MEDS ORDERED: guaiFENesin 200 MG/10 ML 10 ML UNIT-DOSE CUPS PO PRN (14:42)
[2022-05-17] MEDS ORDERED: MAGNESIUM CITRATE 300 ML BOTTLE PO PRN (14:42)
[2022-05-17] MEDS ORDERED: ACETAMINOPHEN 325 MG TABLET (FP) PO PRN (14:42)
[2022-05-17] MEDS ORDERED: IBUPROFEN 400 MG TABLET (FP) PO PRN (14:42)
[2022-05-17] MEDS: NICOTINE 7 MG/24 HOURS TOPICAL PATCH TD SCH (21:56)
[2022-05-17] MEDS: THIAMINE HCL 100 MG TABLET (FP) PO SCH (21:58)
[2022-05-17] MEDS: hydrOXYzine PAMOATE 25 MG CAPSULE (FP) PO SCH ×2 (21:58)
[2022-05-17] MEDS: MELATONIN 5 MG TABLETS PO SCH (22:06)
[2022-05-18] MEDS: hydrOXYzine PAMOATE 25 MG CAPSULE (FP) PO SCH ×5 (06:51→21:24)
[2022-05-18] MEDS: PRENATAL VITAMINS W/ FOLIC ACID TABLET (FP) PO SCH (09:55)
[2022-05-18] MEDS: HYDROCHLOROTHIAZIDE 25 MG TABLET (FP) PO SCH (09:55)
[2022-05-18] MEDS: NICOTINE 7 MG/24 HOURS TOPICAL PATCH TD SCH (09:56)
[2022-05-18 11:27] LABS: EPI CELLS 10 /uL (0-25.1); HYALINE CASTS 0 /uL (0-3.1); URINE APPEARANCE CLEAR; URINE BACTERIA 6 /uL (0-1359); URINE BILIRUBIN NEGATIVE (NEGATIVE); URINE COLOR YELLOW; URINE GLUCOSE (UA) NEGATIVE (NEGATIVE); URINE KETONE NEGATIVE (NEGATIVE); URINE LEUK ESTERASE 1+ (NEGATIVE); URINE NITRITE NEGATIVE (NEGATIVE); URINE PROTEIN NEGATIVE (NEGATIVE); URINE RBC 8 /uL (0-23.9); URINE WBC 56 /uL (0-25.8)
[2022-05-18 11:39] LABS: HEMATOCRIT 36.3 % (35.4-49); HEMOGLOBIN 12.4 GM/dL (11.7-16.9); MCH 33.4 pg (25.7-33.7); MCHC 34.3 g/dl (32.0-35.9); MEAN CELL VOLUME 97.4 fl (80-96); MEAN PLT VOLUME 7.6 fl (7.5-11.1); PLATELET COUNT 219 10^3/uL (134-434); RBC 3.72 M/mm3 (4.00-5.60); RDW 13.7 % (11.9-15.9); WHITE BLOOD COUNT 4.7 K/mm3 (4.0-10.0)
[2022-05-18 11:58] LABS: SYPHILIS W/ RPR CONF NON-REACTIVE (NONREACTIVE)
[2022-05-18 11:59] LABS: ALBUMIN 3.2 g/dl (3.4-5.0); CALCIUM 8.6 mg/dL (8.5-10.1)
[2022-05-18 12:00] LABS: BLOOD UREA NITROGEN 13.8 mg/dL (7-18)
[2022-05-18 12:02] LABS: CREATININE 1.1 mg/dL (0.55-1.3)
[2022-05-18 12:04] LABS: BILIRUBIN,TOTAL 0.4 mg/dL (0.2-1); TOT PROT 6.1 g/dl (6.4-8.2)
[2022-05-18] MEDS: MELATONIN 5 MG TABLETS PO SCH (21:23)
[2022-05-18] MEDS: THIAMINE HCL 100 MG TABLET (FP) PO SCH (21:24)
[2022-05-19] MEDS: hydrOXYzine PAMOATE 25 MG CAPSULE (FP) PO SCH ×2 (06:31→09:58)
[2022-05-19] MEDS: HYDROCHLOROTHIAZIDE 25 MG TABLET (FP) PO SCH (09:58)
[2022-05-19] MEDS: NICOTINE 7 MG/24 HOURS TOPICAL PATCH TD SCH (09:59)
[2022-05-19] MEDS: PRENATAL VITAMINS W/ FOLIC ACID TABLET (FP) PO SCH (09:59)
[2022-05-19] MEDS: MELATONIN 5 MG TABLETS PO SCH (21:21)
[2022-05-19] MEDS: THIAMINE HCL 100 MG TABLET (FP) PO SCH (21:21)
[2022-05-20] MEDS: PRENATAL VITAMINS W/ FOLIC ACID TABLET (FP) PO SCH (10:03)
[2022-05-20] MEDS: NICOTINE 7 MG/24 HOURS TOPICAL PATCH TD SCH (10:03)
[2022-05-20] MEDS: HYDROCHLOROTHIAZIDE 25 MG TABLET (FP) PO SCH (10:03)
[2022-05-20] MEDS: NICOTINE 10 MG CARTRIDGE (INHALER) IH PRN ×2 (10:04→15:34)
[2022-05-20] MEDS: MAG HYDROX/AL HYDROX/SIMETH 30 ML UNIT-DOSE CUP PO PRN (12:56)
[2022-05-20] MEDS: THIAMINE HCL 100 MG TABLET (FP) PO SCH (21:33)
[2022-05-20] MEDS: hydrOXYzine PAMOATE 25 MG CAPSULE (FP) PO PRN (21:33)
[2022-05-20] MEDS: MELATONIN 5 MG TABLETS PO SCH (21:33)
[2022-05-21] MEDS: NICOTINE 10 MG CARTRIDGE (INHALER) IH PRN ×3 (06:13→17:48)
[2022-05-21] MEDS: PRENATAL VITAMINS W/ FOLIC ACID TABLET (FP) PO SCH (09:54)
[2022-05-21] MEDS: NICOTINE 7 MG/24 HOURS TOPICAL PATCH TD SCH (09:55)
[2022-05-21] MEDS: HYDROCHLOROTHIAZIDE 25 MG TABLET (FP) PO SCH (09:55)
[2022-05-21] MEDS: MELATONIN 5 MG TABLETS PO SCH (21:16)
[2022-05-21] MEDS: hydrOXYzine PAMOATE 25 MG CAPSULE (FP) PO PRN (21:16)
[2022-05-21] MEDS: THIAMINE HCL 100 MG TABLET (FP) PO SCH (21:16)
[2022-05-22] MEDS: NICOTINE 10 MG CARTRIDGE (INHALER) IH PRN ×3 (08:14→21:39)
[2022-05-22] MEDS: PRENATAL VITAMINS W/ FOLIC ACID TABLET (FP) PO SCH (10:24)
[2022-05-22] MEDS: HYDROCHLOROTHIAZIDE 25 MG TABLET (FP) PO SCH (10:24)
[2022-05-22] MEDS: NICOTINE 7 MG/24 HOURS TOPICAL PATCH TD SCH (10:24)
[2022-05-22] MEDS: hydrOXYzine PAMOATE 25 MG CAPSULE (FP) PO PRN ×2 (10:25→21:39)
[2022-05-22] MEDS: MELATONIN 5 MG TABLETS PO SCH (21:39)
[2022-05-22] MEDS: THIAMINE HCL 100 MG TABLET (FP) PO SCH (21:39)
[2022-05-23] MEDS: NICOTINE 10 MG CARTRIDGE (INHALER) IH PRN ×3 (06:55→19:38)
[2022-05-23] MEDS: HYDROCHLOROTHIAZIDE 25 MG TABLET (FP) PO SCH (10:19)
[2022-05-23] MEDS: PRENATAL VITAMINS W/ FOLIC ACID TABLET (FP) PO SCH (10:19)
[2022-05-23] MEDS: NICOTINE 7 MG/24 HOURS TOPICAL PATCH TD SCH (10:20)
[2022-05-23] MEDS: MAG HYDROX/AL HYDROX/SIMETH 30 ML UNIT-DOSE CUP PO PRN (19:37)
[2022-05-23] MEDS: hydrOXYzine PAMOATE 25 MG CAPSULE (FP) PO PRN (21:44)
[2022-05-23] MEDS: MELATONIN 5 MG TABLETS PO SCH (21:44)
[2022-05-23] MEDS: THIAMINE HCL 100 MG TABLET (FP) PO SCH (21:44)
[2022-05-24] MEDS: NICOTINE 10 MG CARTRIDGE (INHALER) IH PRN ×3 (05:51→21:22)
[2022-05-24] MEDS: PRENATAL VITAMINS W/ FOLIC ACID TABLET (FP) PO SCH (10:04)
[2022-05-24] MEDS: NICOTINE 7 MG/24 HOURS TOPICAL PATCH TD SCH (10:04)
[2022-05-24] MEDS: HYDROCHLOROTHIAZIDE 25 MG TABLET (FP) PO SCH (10:04)
[2022-05-24] MEDS: hydrOXYzine PAMOATE 25 MG CAPSULE (FP) PO PRN (21:20)
[2022-05-24] MEDS: MELATONIN 5 MG TABLETS PO SCH (21:20)
[2022-05-24] MEDS: THIAMINE HCL 100 MG TABLET (FP) PO SCH (21:20)
[2022-05-24] MEDS: MAG HYDROX/AL HYDROX/SIMETH 30 ML UNIT-DOSE CUP PO PRN (21:21)
[2022-05-25] MEDS: NICOTINE 10 MG CARTRIDGE (INHALER) IH PRN ×3 (10:04→21:24)
[2022-05-25] MEDS: HYDROCHLOROTHIAZIDE 25 MG TABLET (FP) PO SCH (10:04)
[2022-05-25] MEDS: PRENATAL VITAMINS W/ FOLIC ACID TABLET (FP) PO SCH (10:04)
[2022-05-25] MEDS: NICOTINE 7 MG/24 HOURS TOPICAL PATCH TD SCH (10:05)
[2022-05-25] MEDS: MELATONIN 5 MG TABLETS PO SCH (21:22)
[2022-05-25] MEDS: THIAMINE HCL 100 MG TABLET (FP) PO SCH (21:23)
[2022-05-25] MEDS: hydrOXYzine PAMOATE 25 MG CAPSULE (FP) PO PRN (21:23)
[2022-05-26] MEDS: PRENATAL VITAMINS W/ FOLIC ACID TABLET (FP) PO SCH (09:54)
[2022-05-26] MEDS: NICOTINE 7 MG/24 HOURS TOPICAL PATCH TD SCH (09:54)
[2022-05-26] MEDS: NICOTINE 10 MG CARTRIDGE (INHALER) IH PRN ×2 (09:54→17:37)
[2022-05-26] MEDS: HYDROCHLOROTHIAZIDE 25 MG TABLET (FP) PO SCH (09:54)
[2022-05-26] MEDS: MELATONIN 5 MG TABLETS PO SCH (21:18)
[2022-05-26] MEDS: THIAMINE HCL 100 MG TABLET (FP) PO SCH (21:18)
[2022-05-26] MEDS: hydrOXYzine PAMOATE 25 MG CAPSULE (FP) PO PRN (21:18)
[2022-05-27] MEDS: NICOTINE 10 MG CARTRIDGE (INHALER) IH PRN ×2 (07:28→17:24)
[2022-05-27] MEDS: PRENATAL VITAMINS W/ FOLIC ACID TABLET (FP) PO SCH (10:09)
[2022-05-27] MEDS: HYDROCHLOROTHIAZIDE 25 MG TABLET (FP) PO SCH (10:09)
[2022-05-27] MEDS: NICOTINE 7 MG/24 HOURS TOPICAL PATCH TD SCH (10:10)
[2022-05-27] MEDS: MELATONIN 5 MG TABLETS PO SCH (21:17)
[2022-05-27] MEDS: THIAMINE HCL 100 MG TABLET (FP) PO SCH (21:17)
[2022-05-27] MEDS: hydrOXYzine PAMOATE 25 MG CAPSULE (FP) PO PRN (21:18)
[2022-05-28] MEDS: NICOTINE 10 MG CARTRIDGE (INHALER) IH PRN ×3 (06:20→21:43)
[2022-05-28] MEDS: PRENATAL VITAMINS W/ FOLIC ACID TABLET (FP) PO SCH (09:48)
[2022-05-28] MEDS: HYDROCHLOROTHIAZIDE 25 MG TABLET (FP) PO SCH (09:49)
[2022-05-28] MEDS: NICOTINE 7 MG/24 HOURS TOPICAL PATCH TD SCH (09:49)
[2022-05-28] MEDS: MELATONIN 5 MG TABLETS PO SCH (21:43)
[2022-05-28] MEDS: hydrOXYzine PAMOATE 25 MG CAPSULE (FP) PO PRN (21:43)
[2022-05-28] MEDS: THIAMINE HCL 100 MG TABLET (FP) PO SCH (21:43)
[2022-05-29 07:00] VITALS: RESP 18
[2022-05-29] MEDS: HYDROCHLOROTHIAZIDE 25 MG TABLET (FP) PO SCH (10:01)
[2022-05-29] MEDS: PRENATAL VITAMINS W/ FOLIC ACID TABLET (FP) PO SCH (10:01)
[2022-05-29] MEDS: NICOTINE 7 MG/24 HOURS TOPICAL PATCH TD SCH (10:01)
[2022-05-29] MEDS: NICOTINE 10 MG CARTRIDGE (INHALER) IH PRN ×2 (12:58→20:13)
[2022-05-29] MEDS: hydrOXYzine PAMOATE 25 MG CAPSULE (FP) PO PRN (21:19)
[2022-05-29] MEDS: MELATONIN 5 MG TABLETS PO SCH (21:19)
[2022-05-29] MEDS: THIAMINE HCL 100 MG TABLET (FP) PO SCH (21:19)
[2022-05-30] MEDS: NICOTINE 10 MG CARTRIDGE (INHALER) IH PRN ×2 (06:13→17:59)
[2022-05-30] MEDS: PRENATAL VITAMINS W/ FOLIC ACID TABLET (FP) PO SCH (09:35)
[2022-05-30] MEDS: HYDROCHLOROTHIAZIDE 25 MG TABLET (FP) PO SCH (09:35)
[2022-05-30] MEDS: NICOTINE 7 MG/24 HOURS TOPICAL PATCH TD SCH (09:35)
[2022-05-30] MEDS: MAG HYDROX/AL HYDROX/SIMETH 30 ML UNIT-DOSE CUP PO PRN (09:36)
[2022-05-30] MEDS: THIAMINE HCL 100 MG TABLET (FP) PO SCH (21:36)
[2022-05-30] MEDS: hydrOXYzine PAMOATE 25 MG CAPSULE (FP) PO PRN (21:36)
[2022-05-30] MEDS: MELATONIN 5 MG TABLETS PO SCH (21:36)
[2022-05-31] MEDS: NICOTINE 10 MG CARTRIDGE (INHALER) IH PRN (06:35)
[2022-05-31 06:50] VITALS: TEMP 97.3
[2022-05-31] MEDS: HYDROCHLOROTHIAZIDE 25 MG TABLET (FP) PO SCH (09:40)
[2022-05-31] MEDS: PRENATAL VITAMINS W/ FOLIC ACID TABLET (FP) PO SCH (09:40)
[2022-05-31] MEDS: NICOTINE 7 MG/24 HOURS TOPICAL PATCH TD SCH (09:40)
[2022-05-31 11:50] VITALS: BP 125/79; PULSE 101
== END 2022-05-31 10:45 | disposition home or self-care (01) | DRG 772 ==
LOC: YASAS 12:22 → Y5N 20:41
PROVIDERS: ADMIT Allergy & Immunology; ATTEND Psychiatry & Neurology Pain Medicine
PROC: HZ42ZZZ Group Counseling for Substance Abuse Treatment, Cognitive-Behavioral (ICD-10-PCS; principal; 2022-05-17)
DX: F10.20 Alcohol dependence, uncomplicated (principal); F14.20 Cocaine dependence, uncomplicated; F17.210 Nicotine dependence, cigarettes, uncomplicated; F19.282 Other psychoactive substance dependence with psychoactive substance-induced sleep disorder; F32.A Depression, unspecified; I10 Essential (primary) hypertension
CPT/HCPCS: 36415; 80053; 81003; 85027; 86780; 86803; 87086; 87811; C9803-CS; U0003; U0005

== ENCOUNTER 2023-04-01 18:01 | Inpatient (IN) | payer OTHER ==
[2023-04-01 18:23] VITALS: BMI 24.7
[2023-04-01] MEDS ORDERED: NALOXONE HCL (KLOXXADO) 8 MG SPRAY NS PRN (20:24)
[2023-04-01] MEDS ORDERED: MAGNESIUM HYDROX 2400MG/30ML ORAL SUSPENSION 30 ML CUP PO PRN (20:24)
[2023-04-01] MEDS ORDERED: ACETAMINOPHEN 325 MG TABLET (FP) PO PRN ×2 (20:24)
[2023-04-01] MEDS ORDERED: NALOXONE HCL 0.4 MG/ML VIAL IM PRN (20:24)
[2023-04-01] MEDS ORDERED: DICYCLOMINE HCL 10 MG CAPSULE PO PRN (20:24)
[2023-04-01] MEDS ORDERED: BENZONATATE 200 MG CAPSULE PO PRN (20:24)
[2023-04-01] MEDS ORDERED: hydrOXYzine PAMOATE 25 MG CAPSULE (FP) PO PRN (20:24)
[2023-04-01] MEDS ORDERED: P-EPHED 60MG/TRIPROLIDI 2.5MG TABLET PO PRN (20:24)
[2023-04-01] MEDS ORDERED: IBUPROFEN 400 MG TABLET (FP) PO PRN (20:24)
[2023-04-01] MEDS ORDERED: MAG HYDROX/AL HYDROX/SIMETH 30 ML UNIT-DOSE CUP PO PRN (20:24)
[2023-04-01] MEDS ORDERED: LOPERAMIDE HCL 2 MG CAPSULE PO PRN (20:24)
[2023-04-01] MEDS ORDERED: BISMUTH SUBSALICYLATE 524 MG/30 ML PO PRN (20:24)
[2023-04-01] MEDS ORDERED: ONDANSETRON *ODT* 4 MG TABLET SL PRN (20:24)
[2023-04-01] MEDS ORDERED: POLYETHYLENE GLYCOL (HEALTHYLAX) 3350 17 GM PACKET PO PRN (20:24)
[2023-04-01] MEDS ORDERED: NICOTINE POLACRILEX 2 MG GUM BUC PRN (20:24)
[2023-04-01] MEDS ORDERED: BENZOCAINE/MENTHOL (CHLORASEPTIC ) LOZENGE MM PRN (20:24)
[2023-04-01] MEDS ORDERED: IBUPROFEN 600 MG TABLET (FP) PO PRN (20:24)
[2023-04-01] MEDS ORDERED: guaiFENesin 600 MG TABLET.ER (FP) PO PRN (20:24)
[2023-04-01] MEDS: MELATONIN 5 MG TABLETS PO SCH (21:33)
[2023-04-01] MEDS: THIAMINE HCL 100 MG TABLET (FP) PO SCH (21:33)
[2023-04-02 09:58] VITALS: RESP 18
[2023-04-02 10:01] LABS: POTASSIUM 3.6 mmol/L (3.5-5.1)
[2023-04-02 10:04] LABS: ALBUMIN 3.4 g/dl (3.4-5.0); BLOOD UREA NITROGEN 21.2 mg/dL (7-18); CALCIUM 8.8 mg/dL (8.5-10.1)
[2023-04-02 10:06] LABS: HEMATOCRIT 35.1 % (35.4-49); MCH 32.8 pg (25.7-33.7); MCHC 34.1 g/dl (32.0-35.9); MEAN CELL VOLUME 96.2 fl (80-96); MEAN PLT VOLUME 7.7 fl (7.5-11.1); PLATELET COUNT 270 10^3/uL (134-434); RBC 3.64 M/mm3 (4.00-5.60); RDW 14.4 % (11.9-15.9); WHITE BLOOD COUNT 4.3 K/mm3 (4.0-10.0)
[2023-04-02 10:09] LABS: BILIRUBIN,TOTAL 0.5 mg/dL (0.2-1); TOT PROT 6.4 g/dl (6.4-8.2)
[2023-04-02] MEDS: PRENATAL VITAMINS W/ FOLIC ACID TABLET (FP) PO SCH (10:34)
[2023-04-02] MEDS: THIAMINE HCL 100 MG TABLET (FP) PO SCH (22:19)
[2023-04-02] MEDS: MELATONIN 5 MG TABLETS PO SCH (22:19)
[2023-04-03 09:36] VITALS: BP 144/97; PULSE 77; TEMP 97.8
[2023-04-03] MEDS: PRENATAL VITAMINS W/ FOLIC ACID TABLET (FP) PO SCH (10:06)
== END 2023-04-03 09:25 | disposition home or self-care (01) | DRG 774 ==
LOC: YASAS 18:01 → UNDOADMIN 20:39 → Y6N 20:39 → UNDODISIN 04-03 09:25
PROVIDERS: ADMIT Allergy & Immunology; ATTEND Surgery
PROC: HZ2ZZZZ Detoxification Services for Substance Abuse Treatment (ICD-10-PCS; principal; 2023-04-01)
DX: F10.230 Alcohol dependence with withdrawal, uncomplicated (principal); F14.20 Cocaine dependence, uncomplicated; F17.210 Nicotine dependence, cigarettes, uncomplicated; D17.0 Benign lipomatous neoplasm of skin and subcutaneous tissue of head, face and neck
CPT/HCPCS: 36415; 80053; 85027; 86780; C9803-CS; U0003; U0005

== ENCOUNTER 2023-05-20 13:20 | Inpatient (IN) | payer OTHER ==
[2023-05-20 14:50] VITALS: BMI 25.8
[2023-05-20] MEDS ORDERED: ACETAMINOPHEN 325 MG TABLET (FP) PO PRN (16:42)
[2023-05-20] MEDS ORDERED: BENZOCAINE/MENTHOL (CHLORASEPTIC ) LOZENGE MM PRN (16:42)
[2023-05-20] MEDS ORDERED: NICOTINE POLACRILEX 2 MG GUM BUC PRN (16:42)
[2023-05-20] MEDS ORDERED: LOPERAMIDE HCL 2 MG CAPSULE PO PRN (16:42)
[2023-05-20] MEDS ORDERED: MAGNESIUM HYDROX 2400MG/30ML ORAL SUSPENSION 30 ML CUP PO PRN (16:42)
[2023-05-20] MEDS ORDERED: P-EPHED 60MG/TRIPROLIDI 2.5MG TABLET PO PRN (16:42)
[2023-05-20] MEDS ORDERED: DICYCLOMINE HCL 10 MG CAPSULE PO PRN (16:42)
[2023-05-20] MEDS ORDERED: POLYETHYLENE GLYCOL (HEALTHYLAX) 3350 17 GM PACKET PO PRN (16:42)
[2023-05-20] MEDS ORDERED: guaiFENesin 600 MG TABLET.ER (FP) PO PRN (16:42)
[2023-05-20] MEDS ORDERED: IBUPROFEN 400 MG TABLET (FP) PO PRN (16:42)
[2023-05-20] MEDS ORDERED: ONDANSETRON *ODT* 4 MG TABLET SL PRN (16:42)
[2023-05-20] MEDS ORDERED: BENZONATATE 200 MG CAPSULE PO PRN (16:42)
[2023-05-20] MEDS ORDERED: IBUPROFEN 600 MG TABLET (FP) PO PRN (16:42)
[2023-05-20] MEDS ORDERED: MELATONIN 5 MG TABLETS PO SCH (22:00)
[2023-05-20] MEDS: THIAMINE HCL 100 MG TABLET (FP) PO SCH (22:08)
[2023-05-20] MEDS: hydrOXYzine PAMOATE 25 MG CAPSULE (FP) PO PRN (22:09)
[2023-05-21] MEDS: PRENATAL VITAMINS W/ FOLIC ACID TABLET (FP) PO SCH (10:47)
[2023-05-21] MEDS: hydrOXYzine PAMOATE 25 MG CAPSULE (FP) PO PRN ×2 (10:47→22:22)
[2023-05-21 11:45] LABS: HEMATOCRIT 37.7 % (35.4-49); HEMOGLOBIN 12.2 GM/dL (11.7-16.9); MCH 32.3 pg (25.7-33.7); MCHC 32.4 g/dl (32.0-35.9); MEAN CELL VOLUME 99.7 fl (80-96); MEAN PLT VOLUME 8.4 fl (7.5-11.1); PLATELET COUNT 268 10^3/uL (134-434); RBC 3.78 M/mm3 (4.00-5.60); RDW 14.2 % (11.9-15.9); WHITE BLOOD COUNT 4.7 K/mm3 (4.0-10.0)
[2023-05-21 11:54] LABS: POTASSIUM 3.4 mmol/L (3.5-5.1)
[2023-05-21 12:00] LABS: ALBUMIN 3.6 g/dl (3.4-5.0); BLOOD UREA NITROGEN 19.1 mg/dL (7-18); CALCIUM 8.8 mg/dL (8.5-10.1)
[2023-05-21 12:03] LABS: CREATININE 1.3 mg/dL (0.55-1.3)
[2023-05-21 12:04] LABS: BILIRUBIN,TOTAL 0.6 mg/dL (0.2-1); TOT PROT 6.4 g/dl (6.4-8.2)
[2023-05-21] MEDS ORDERED: POTASSIUM CHLORIDE ORAL LIQUID 20 MEQ/15 ML PO ONE (13:44)
[2023-05-21] MEDS: MAG HYDROX/AL HYDROX/SIMETH 30 ML UNIT-DOSE CUP PO PRN ×2 (14:46→20:50)
[2023-05-21] MEDS: THIAMINE HCL 100 MG TABLET (FP) PO SCH (22:21)
[2023-05-21] MEDS: SUVOREXANT 10 MG TABLET PO PRN (22:22)
[2023-05-22] MEDS: MAG HYDROX/AL HYDROX/SIMETH 30 ML UNIT-DOSE CUP PO PRN (05:53)
[2023-05-22] MEDS: hydrOXYzine PAMOATE 25 MG CAPSULE (FP) PO PRN ×2 (10:12→22:32)
[2023-05-22] MEDS: PRENATAL VITAMINS W/ FOLIC ACID TABLET (FP) PO SCH (10:12)
[2023-05-22] MEDS: BISMUTH SUBSALICYLATE 524 MG/30 ML PO PRN (10:13)
[2023-05-22] MEDS ORDERED: diazePAM 5 MG TABLET PO PRN (15:17)
[2023-05-22] MEDS: HYDROCHLOROTHIAZIDE 12.5 MG CAPSULE (FP) PO SCH (15:52)
[2023-05-22] MEDS: diazePAM 5 MG TABLET PO SCH ×2 (17:34→22:31)
[2023-05-22] MEDS: THIAMINE HCL 100 MG TABLET (FP) PO SCH (22:29)
[2023-05-22] MEDS: SUVOREXANT 10 MG TABLET PO PRN (22:29)
[2023-05-23] MEDS: diazePAM 5 MG TABLET PO SCH ×3 (05:51→22:05)
[2023-05-23] MEDS: MAG HYDROX/AL HYDROX/SIMETH 30 ML UNIT-DOSE CUP PO PRN (07:17)
[2023-05-23] MEDS: HYDROCHLOROTHIAZIDE 12.5 MG CAPSULE (FP) PO SCH (10:23)
[2023-05-23] MEDS: PRENATAL VITAMINS W/ FOLIC ACID TABLET (FP) PO SCH (10:23)
[2023-05-23] MEDS: POTASSIUM CHLORIDE ORAL LIQUID 20 MEQ/15 ML PO SCH ×2 (10:24→13:32)
[2023-05-23] MEDS: BISMUTH SUBSALICYLATE 524 MG/30 ML PO PRN (19:37)
[2023-05-23 21:20] VITALS: TEMP 97.9
[2023-05-23] MEDS: THIAMINE HCL 100 MG TABLET (FP) PO SCH (22:05)
[2023-05-23] MEDS: SUVOREXANT 10 MG TABLET PO PRN (22:06)
[2023-05-24] MEDS ORDERED: diazePAM 5 MG TABLET PO SCH (06:00)
[2023-05-24] MEDS: PRENATAL VITAMINS W/ FOLIC ACID TABLET (FP) PO SCH (09:37)
[2023-05-24] MEDS: HYDROCHLOROTHIAZIDE 12.5 MG CAPSULE (FP) PO SCH (09:37)
[2023-05-24 09:53] VITALS: BP 133/97; PULSE 85; RESP 16
[2023-05-25] MEDS ORDERED: diazePAM 5 MG TABLET PO ONE (06:00)
== END 2023-05-24 10:05 | disposition home or self-care (01) | DRG 774 ==
LOC: YASAS 13:20 → Y6N 16:50
PROVIDERS: ADMIT Allergy & Immunology; ATTEND Surgery
PROC: HZ2ZZZZ Detoxification Services for Substance Abuse Treatment (ICD-10-PCS; principal; 2023-05-20)
DX: F10.230 Alcohol dependence with withdrawal, uncomplicated (principal); F14.20 Cocaine dependence, uncomplicated; F17.213 Nicotine dependence, cigarettes, with withdrawal; F19.282 Other psychoactive substance dependence with psychoactive substance-induced sleep disorder; E87.6 Hypokalemia; I10 Essential (primary) hypertension; D17.0 Benign lipomatous neoplasm of skin and subcutaneous tissue of head, face and neck
CPT/HCPCS: 36415; 80053; 83036; 84132; 85027; 86780; 87635; 93005; 93010

== ENCOUNTER 2023-12-16 11:30 | Inpatient (IN) | payer OTHER ==
[2023-12-16 12:06] VITALS: BMI 25.8
[2023-12-16] MEDS ORDERED: NICOTINE POLACRILEX 2 MG GUM BUC PRN (13:27)
[2023-12-16] MEDS ORDERED: IBUPROFEN 400 MG TABLET (FP) PO PRN (13:27)
[2023-12-16] MEDS ORDERED: NALOXONE HCL (KLOXXADO) 8 MG SPRAY NS PRN (13:27)
[2023-12-16] MEDS ORDERED: BENZOCAINE/MENTHOL (CHLORASEPTIC ) LOZENGE MM PRN (13:27)
[2023-12-16] MEDS ORDERED: POLYETHYLENE GLYCOL (HEALTHYLAX) 3350 17 GM PACKET PO PRN (13:27)
[2023-12-16] MEDS ORDERED: NALOXONE HCL 0.4 MG/ML VIAL IM PRN (13:27)
[2023-12-16] MEDS ORDERED: guaiFENesin 600 MG TABLET.ER (FP) PO PRN (13:27)
[2023-12-16] MEDS ORDERED: MAG HYDROX/AL HYDROX/SIMETH 30 ML UNIT-DOSE CUP PO PRN (13:27)
[2023-12-16] MEDS ORDERED: LOPERAMIDE HCL 2 MG CAPSULE PO PRN (13:27)
[2023-12-16] MEDS ORDERED: BENZONATATE 200 MG CAPSULE PO PRN (13:27)
[2023-12-16] MEDS ORDERED: chlordiazePOXIDE HCL 25 MG CAPSULE PO PRN (13:27)
[2023-12-16] MEDS ORDERED: ONDANSETRON *ODT* 4 MG TABLET SL PRN (13:27)
[2023-12-16] MEDS ORDERED: MAGNESIUM HYDROX 2400MG/30ML ORAL SUSPENSION 30 ML CUP PO PRN (13:27)
[2023-12-16] MEDS ORDERED: ACETAMINOPHEN 325 MG TABLET (FP) PO PRN (13:27)
[2023-12-16] MEDS ORDERED: BISMUTH SUBSALICYLATE 524 MG/30 ML PO PRN (13:27)
[2023-12-16] MEDS ORDERED: DICYCLOMINE HCL 10 MG CAPSULE PO PRN (13:27)
[2023-12-16] MEDS ORDERED: IBUPROFEN 600 MG TABLET (FP) PO PRN (13:27)
[2023-12-16] MEDS: PRENATAL VITAMINS W/ FOLIC ACID TABLET (FP) PO SCH (14:33)
[2023-12-16] MEDS: chlordiazePOXIDE HCL 25 MG CAPSULE PO SCH (17:29)
[2023-12-16] MEDS: MELATONIN 5 MG TABLETS PO SCH (22:41)
[2023-12-16] MEDS: THIAMINE HCL 100 MG TABLET (FP) PO SCH (22:41)
[2023-12-16] MEDS: METHOCARBAMOL 500 MG TABLET PO PRN (22:41)
[2023-12-16] MEDS: hydrOXYzine PAMOATE 25 MG CAPSULE (FP) PO PRN (22:41)
[2023-12-17] MEDS ORDERED: diphenhydrAMINE HCL 25 MG CAPSULE (FP) PO SCH (08:30)
[2023-12-17] MEDS: HYDROCHLOROTHIAZIDE 25 MG TABLET (FP) PO SCH (10:27)
[2023-12-17] MEDS: VENLAFAXINE HCL 150 MG E.R. CAPSULE PO SCH (11:20)
[2023-12-17 13:43] LABS: HEMATOCRIT 35.5 % (35.4-49); HEMOGLOBIN 11.9 GM/dL (11.7-16.9); MCH 32.8 pg (25.7-33.7); MCHC 33.4 g/dl (32.0-35.9); MEAN CELL VOLUME 97.9 fl (80-96); MEAN PLT VOLUME 7.7 fl (7.5-11.1); PLATELET COUNT 278 10^3/uL (134-434); RBC 3.63 M/mm3 (4.00-5.60); RDW 13.9 % (11.9-15.9); WHITE BLOOD COUNT 3.5 K/mm3 (4.0-10.0)
[2023-12-17 13:45] LABS: CHLORIDE 110 mmol/L (98-107); POTASSIUM 3.8 mmol/L (3.5-5.1); SODIUM 141 mmol/L (136-145)
[2023-12-17 13:49] LABS: ALBUMIN 3.2 g/dl (3.4-5.0); BLOOD UREA NITROGEN 11.4 mg/dL (7-18)
[2023-12-17 13:50] LABS: ANION GAP 3 mmol/L (4-13); CALCIUM 8.5 mg/dL (8.5-10.1); CO2 28 mmol/L (21-32)
[2023-12-17 13:52] LABS: SGOT/AST 17 U/L (15-37); SGPT/ALT 24 U/L (13-61)
[2023-12-17 13:54] LABS: BILIRUBIN,TOTAL 0.3 mg/dL (0.2-1)
[2023-12-17 13:55] LABS: ALK PHOS 83 U/L (45-117)
[2023-12-17 13:58] LABS: GLUCOSE,RANDOM 87 mg/dL (74-106)
[2023-12-18] MEDS: chlordiazePOXIDE HCL 25 MG CAPSULE PO SCH (05:56)
[2023-12-19] MEDS ORDERED: chlordiazePOXIDE HCL 10 MG CAPSULE PO PRN
[2023-12-19] MEDS: chlordiazePOXIDE HCL 10 MG CAPSULE PO SCH (05:40)
[2023-12-20] MEDS: chlordiazePOXIDE HCL 10 MG CAPSULE PO SCH (05:48)
[2023-12-20 09:47] VITALS: BP 113/71; PULSE 90; RESP 16; TEMP 98
[2023-12-21] MEDS ORDERED: chlordiazePOXIDE HCL 10 MG CAPSULE PO ONE (05:00)
== END 2023-12-20 10:11 | disposition home or self-care (01) | DRG 775 ==
LOC: YASAS 11:30 → Y3N 13:45
PROVIDERS: ADMIT Allergy & Immunology; ATTEND Surgery
PROC: HZ2ZZZZ Detoxification Services for Substance Abuse Treatment (ICD-10-PCS; principal; 2023-12-16)
DX: F10.230 Alcohol dependence with withdrawal, uncomplicated (principal); F13.230 Sedative, hypnotic or anxiolytic dependence with withdrawal, uncomplicated; F17.210 Nicotine dependence, cigarettes, uncomplicated; F19.280 Other psychoactive substance dependence with psychoactive substance-induced anxiety disorder; F10.982 Alcohol use, unspecified with alcohol-induced sleep disorder; F41.9 Anxiety disorder, unspecified; I10 Essential (primary) hypertension; Z86.79 Personal history of other diseases of the circulatory system
CPT/HCPCS: 36415; 80053; 80307; 85027; 86780; 87635; 93005; 93010

== ENCOUNTER 2024-02-13 11:40 | Inpatient (IN) | payer OTHER ==
[2024-02-13 11:58] VITALS: BMI 25.8
[2024-02-13] MEDS ORDERED: BENZOCAINE/MENTHOL (CHLORASEPTIC ) LOZENGE MM PRN (12:10)
[2024-02-13] MEDS ORDERED: IBUPROFEN 600 MG TABLET (FP) PO PRN (12:10)
[2024-02-13] MEDS ORDERED: LOPERAMIDE HCL 2 MG CAPSULE PO PRN (12:10)
[2024-02-13] MEDS ORDERED: POLYETHYLENE GLYCOL (HEALTHYLAX) 3350 17 GM PACKET PO PRN (12:10)
[2024-02-13] MEDS ORDERED: MAGNESIUM HYDROX 2400MG/30ML ORAL SUSPENSION 30 ML CUP PO PRN (12:10)
[2024-02-13] MEDS ORDERED: BENZONATATE 200 MG CAPSULE PO PRN (12:10)
[2024-02-13] MEDS ORDERED: IBUPROFEN 400 MG TABLET (FP) PO PRN (12:10)
[2024-02-13] MEDS ORDERED: ACETAMINOPHEN 325 MG TABLET (FP) PO PRN (12:10)
[2024-02-13] MEDS ORDERED: guaiFENesin 600 MG TABLET.ER (FP) PO PRN (12:10)
[2024-02-13] MEDS: MELATONIN 5 MG TABLETS PO SCH (21:03)
[2024-02-13] MEDS: THIAMINE HCL 100 MG TABLET (FP) PO SCH (21:03)
[2024-02-14] MEDS: HYDROCHLOROTHIAZIDE 25 MG TABLET (FP) PO SCH (10:08)
[2024-02-14] MEDS: PRENATAL VITAMINS W/ FOLIC ACID TABLET (FP) PO SCH (10:08)
[2024-02-14] MEDS: VENLAFAXINE HCL 150 MG E.R. CAPSULE PO SCH (10:09)
[2024-02-14] MEDS: MAG HYDROX/AL HYDROX/SIMETH 30 ML UNIT-DOSE CUP PO PRN (10:11)
[2024-02-14 12:18] LABS: POTASSIUM 3.3 mmol/L (3.5-5.1)
[2024-02-14 12:21] LABS: ALBUMIN 3.8 g/dl (3.4-5.0)
[2024-02-14 12:22] LABS: CALCIUM 9.2 mg/dL (8.5-10.1)
[2024-02-14 12:23] LABS: BLOOD UREA NITROGEN 12.4 mg/dL (7-18)
[2024-02-14 12:25] LABS: CREATININE 1.3 mg/dL (0.55-1.3)
[2024-02-14 12:26] LABS: BILIRUBIN,TOTAL 0.9 mg/dL (0.2-1); TOT PROT 7.1 g/dl (6.4-8.2)
[2024-02-14 12:32] LABS: HEMATOCRIT 39.3 % (35.4-49); HEMOGLOBIN 12.9 GM/dL (11.7-16.9); MCH 32.6 pg (25.7-33.7); MCHC 32.8 g/dl (32.0-35.9); MEAN CELL VOLUME 99.5 fl (80-96); MEAN PLT VOLUME 8.2 fl (7.5-11.1); PLATELET COUNT 317 10^3/uL (134-434); RBC 3.95 M/mm3 (4.00-5.60); RDW 14.4 % (11.9-15.9)
[2024-02-14] MEDS: POTASSIUM CHLORIDE ORAL LIQUID 20 MEQ/15 ML PO SCH (15:07)
[2024-02-15 08:06] VITALS: TEMP 97.3
[2024-02-15 11:53] LABS: POTASSIUM 3.9 mmol/L (3.5-5.1)
[2024-02-15 12:00] LABS: ALBUMIN 3.8 g/dl (3.4-5.0); BLOOD UREA NITROGEN 9.5 mg/dL (7-18); CALCIUM 9.4 mg/dL (8.5-10.1)
[2024-02-15 12:03] LABS: CREATININE 1.1 mg/dL (0.55-1.3)
[2024-02-15 12:04] LABS: BILIRUBIN,TOTAL 0.6 mg/dL (0.2-1); TOT PROT 6.8 g/dl (6.4-8.2)
[2024-02-16 11:26] LABS: EPI CELLS 8 /uL (0-25.1); HYALINE CASTS 0 /uL (0-3.1); PH,URINE 7.5 (5.0-8.0); URINE APPEARANCE CLEAR; URINE BACTERIA 6 /uL (0-1359); URINE BILIRUBIN NEGATIVE (NEGATIVE); URINE COLOR YELLOW; URINE GLUCOSE (UA) NEGATIVE (NEGATIVE); URINE KETONE NEGATIVE (NEGATIVE); URINE LEUK ESTERASE TRACE (NEGATIVE); URINE NITRITE NEGATIVE (NEGATIVE); URINE PROTEIN NEGATIVE (NEGATIVE); URINE RBC 9 /uL (0-23.9); URINE UROBILINOGEN 0.2 mg/dL (0.2-1.0); URINE WBC 49 /uL (0-25.8)
[2024-02-17 10:18] VITALS: BP 107/80; PULSE 87; RESP 18
== END 2024-02-17 13:22 | disposition home or self-care (01) | DRG 772 ==
LOC: YASAS 11:40 → Y3W 14:22
PROVIDERS: ADMIT Allergy & Immunology; ATTEND Psychiatry & Neurology Pain Medicine
PROC: HZ42ZZZ Group Counseling for Substance Abuse Treatment, Cognitive-Behavioral (ICD-10-PCS; principal; 2024-02-13)
DX: F10.20 Alcohol dependence, uncomplicated (principal); F14.20 Cocaine dependence, uncomplicated; F17.210 Nicotine dependence, cigarettes, uncomplicated; F10.280 Alcohol dependence with alcohol-induced anxiety disorder; F10.282 Alcohol dependence with alcohol-induced sleep disorder; F41.9 Anxiety disorder, unspecified; E87.6 Hypokalemia; I10 Essential (primary) hypertension; Z86.79 Personal history of other diseases of the circulatory system
CPT/HCPCS: 36415; 80053; 80307; 81003; 82962; 85027; 86780

== ENCOUNTER 2025-03-15 14:18 | Inpatient (IN) | payer OTHER ==
[2025-03-15 14:42] VITALS: BMI 25.8
[2025-03-15] MEDS ORDERED: diazePAM 5 MG TABLET PO PRN (14:46)
[2025-03-15] MEDS ORDERED: POLYETHYLENE GLYCOL (HEALTHYLAX) 3350 17 GM PACKET PO PRN (14:58)
[2025-03-15] MEDS ORDERED: ACETAMINOPHEN 325 MG TABLET (FP) PO PRN (14:58)
[2025-03-15] MEDS ORDERED: MAGNESIUM HYDROX 2400MG/30ML ORAL SUSPENSION 30 ML CUP PO PRN (14:58)
[2025-03-15] MEDS ORDERED: IBUPROFEN 600 MG TABLET (FP) PO PRN (14:58)
[2025-03-15] MEDS ORDERED: BENZONATATE 200 MG CAPSULE PO PRN (14:58)
[2025-03-15] MEDS ORDERED: IBUPROFEN 400 MG TABLET (FP) PO PRN (14:58)
[2025-03-15] MEDS ORDERED: BENZOCAINE/MENTHOL (CHLORASEPTIC ) LOZENGE MM PRN (14:58)
[2025-03-15] MEDS ORDERED: NALOXONE (NARCAN) HCL 4 MG/0.1 ML SPRAY NS PRN (14:58)
[2025-03-15] MEDS ORDERED: guaiFENesin 600 MG TABLET.ER (FP) PO PRN (14:58)
[2025-03-15] MEDS ORDERED: DICYCLOMINE HCL 10 MG CAPSULE PO PRN (14:58)
[2025-03-15] MEDS ORDERED: LOPERAMIDE HCL 2 MG CAPSULE PO PRN (14:58)
[2025-03-15] MEDS ORDERED: ONDANSETRON *ODT* 4 MG TABLET SL PRN (14:58)
[2025-03-15] MEDS: diazePAM 5 MG TABLET PO SCH (17:28)
[2025-03-15] MEDS: MELATONIN 5 MG TABLETS PO SCH (22:19)
[2025-03-15] MEDS: THIAMINE 100 MG TABLET PO SCH (22:21)
[2025-03-16] MEDS: diazePAM 5 MG TABLET PO SCH (06:03)
[2025-03-16 10:02] LABS: HEMATOCRIT 39.4 % (40.1-51.0); HEMOGLOBIN 12.8 g/dL (13.7-17.5); MCHC 32.5 g/dl (32.3-36.5); MEAN CELL VOLUME 98.3 fl (79.0-92.2); MEAN PLT VOLUME 9.6 fl (9.4-12.4); PLATELET COUNT 254 x10^3/uL (163-337); RDW 13.2 % (12.2-16.1)
[2025-03-16 10:06] LABS: CHLORIDE 105 mmol/L (98-107); POTASSIUM 4.3 mmol/L (3.5-5.1); SODIUM 141 mmol/L (136-145)
[2025-03-16] MEDS: PRENATAL VITAMINS W/ FOLIC ACID TABLET (FP) PO SCH (10:09)
[2025-03-16 10:11] LABS: CALCIUM 9.3 mg/dL (8.5-10.1)
[2025-03-16 10:12] LABS: ALBUMIN 3.3 g/dl (3.4-5.0); ANION GAP 10 mmol/L (4-13); CO2 26 mmol/L (21-32); GLUCOSE,RANDOM 106 mg/dL (74-106)
[2025-03-16 10:15] LABS: SGOT/AST 21 U/L (15-37); SGPT/ALT 29 U/L (13-61)
[2025-03-16 10:17] LABS: BILIRUBIN,TOTAL 0.3 mg/dL (0.2-1); TOT PROT 5.9 g/dl (6.4-8.2)
[2025-03-16 10:18] LABS: ALK PHOS 73 U/L (45-117)
[2025-03-16] MEDS: MAG HYDROX/AL HYDROX/SIMETH 30 ML UNIT-DOSE CUP PO PRN (17:14)
[2025-03-16] MEDS: METHOCARBAMOL 500 MG TABLET PO PRN (22:41)
[2025-03-16] MEDS: SUVOREXANT 10 MG TABLET PO PRN (22:43)
[2025-03-16] MEDS: BISMUTH SUBSALICYLATE 262 MG/15 ML BTL PO PRN (23:11)
[2025-03-17] MEDS: diazePAM 5 MG TABLET PO SCH (06:04)
[2025-03-17] MEDS: cloNIDine HCL 0.1 MG TABLET PO ONE (12:46)
[2025-03-18] MEDS: diazePAM 5 MG TABLET PO ONE (05:29)
[2025-03-18 08:52] VITALS: BP 127/84; PULSE 86; RESP 18; TEMP 97.9
[2025-03-18] MEDS: HYDROCHLOROTHIAZIDE 25 MG TABLET (FP) PO SCH (10:40)
[2025-03-18] MEDS: NALTREXONE HCL 50 MG TABLET PO ONE (11:03)
== END 2025-03-18 11:00 | disposition home or self-care (01) | DRG 774 ==
LOC: YASAS 14:18 → Y6N 15:08
PROVIDERS: ADMIT Allergy & Immunology; ATTEND Allergy & Immunology
PROC: HZ2ZZZZ Detoxification Services for Substance Abuse Treatment (ICD-10-PCS; principal; 2025-03-15)
DX: F10.230 Alcohol dependence with withdrawal, uncomplicated (principal); F14.20 Cocaine dependence, uncomplicated; F17.210 Nicotine dependence, cigarettes, uncomplicated; F10.282 Alcohol dependence with alcohol-induced sleep disorder; F32.9 Major depressive disorder, single episode, unspecified; F41.9 Anxiety disorder, unspecified; I10 Essential (primary) hypertension; I48.0 Paroxysmal atrial fibrillation; D17.0 Benign lipomatous neoplasm of skin and subcutaneous tissue of head, face and neck
CPT/HCPCS: 36415; 80053; 80305; 80307; 85027; 86780; 93005; 93010

== ENCOUNTER 2025-07-04 14:58 | Inpatient (IN) | payer OTHER ==
[2025-07-04 15:26] VITALS: BMI 28.3
[2025-07-04] MEDS ORDERED: ACETAMINOPHEN 325 MG TABLET (FP) PO PRN (16:23)
[2025-07-04] MEDS ORDERED: MAGNESIUM HYDROX 2400MG/30ML ORAL SUSPENSION 30 ML CUP PO PRN (16:23)
[2025-07-04] MEDS ORDERED: LOPERAMIDE HCL 2 MG CAPSULE PO PRN (16:23)
[2025-07-04] MEDS ORDERED: IBUPROFEN 400 MG TABLET (FP) PO PRN (16:23)
[2025-07-04] MEDS ORDERED: NALOXONE (NARCAN) HCL 4 MG/0.1 ML SPRAY NS PRN (16:23)
[2025-07-04] MEDS ORDERED: DICYCLOMINE HCL 10 MG CAPSULE PO PRN (16:23)
[2025-07-04] MEDS ORDERED: POLYETHYLENE GLYCOL (HEALTHYLAX) 3350 17 GM PACKET PO PRN (16:23)
[2025-07-04] MEDS ORDERED: BENZONATATE 200 MG CAPSULE PO PRN (16:23)
[2025-07-04] MEDS ORDERED: BENZOCAINE/MENTHOL (CHLORASEPTIC ) LOZENGE MM PRN (16:23)
[2025-07-04] MEDS ORDERED: guaiFENesin 600 MG TABLET.ER (FP) PO PRN (16:23)
[2025-07-04] MEDS ORDERED: IBUPROFEN 600 MG TABLET (FP) PO PRN (16:23)
[2025-07-04] MEDS ORDERED: ONDANSETRON *ODT* 4 MG TABLET ONE (16:45)
[2025-07-04] MEDS: ONDANSETRON *ODT* 4 MG TABLET SL PRN (16:54)
[2025-07-04] MEDS: THIAMINE 100 MG TABLET PO SCH (22:32)
[2025-07-04] MEDS: hydrOXYzine PAMOATE 25 MG CAPSULE (FP) PO PRN (22:32)
[2025-07-04] MEDS: METHOCARBAMOL 500 MG TABLET PO PRN (22:32)
[2025-07-04] MEDS: MELATONIN 5 MG TABLETS PO SCH (22:32)
[2025-07-05 10:01] LABS: MCHC 32.8 g/dl (32.3-36.5); MEAN CELL VOLUME 98.7 fl (79.0-92.2); MEAN PLT VOLUME 9.7 fl (9.4-12.4); RDW 12.5 % (12.2-16.1)
[2025-07-05 10:13] LABS: GLUCOSE,RANDOM 103 mg/dL (74-106)
[2025-07-05 10:14] LABS: TOT PROT 6.4 g/dl (6.4-8.2)
[2025-07-05 10:15] LABS: CO2 28 mmol/L (21-32)
[2025-07-05 10:16] LABS: ALK PHOS 73 U/L (40-150)
[2025-07-05 10:19] LABS: CREATININE 1.17 mg/dL (0.55-1.3); SGOT/AST 26 U/L (5-34); SGPT/ALT 22 U/L (0-55)
[2025-07-05] MEDS: PRENATAL VITAMINS W/ FOLIC ACID TABLET (FP) PO SCH (10:35)
[2025-07-05] MEDS: BISMUTH SUBSALICYLATE 524 MG/30 ML PO PRN (16:00)
[2025-07-06] MEDS: NALTREXONE HCL 50 MG TABLET PO SCH (10:06)
[2025-07-06] MEDS: MAG HYDROX/AL HYDROX/SIMETH 30 ML UNIT-DOSE CUP PO PRN (17:59)
[2025-07-07] MEDS: HYDROCHLOROTHIAZIDE 25 MG TABLET (FP) PO SCH (14:42)
[2025-07-08 09:24] VITALS: BP 128/83; PULSE 96; RESP 15; TEMP 97.3
== END 2025-07-08 10:35 | disposition home or self-care (01) | DRG 774 ==
LOC: YASAS 14:58 → Y6N 16:51
PROVIDERS: ADMIT Neuromusculoskeletal Medicine & OMM; ATTEND Student in an Organized Health Care Education/Training Program
PROC: HZ2ZZZZ Detoxification Services for Substance Abuse Treatment (ICD-10-PCS; principal; 2025-07-04)
DX: F10.230 Alcohol dependence with withdrawal, uncomplicated (principal); F14.10 Cocaine abuse, uncomplicated; F17.210 Nicotine dependence, cigarettes, uncomplicated; I48.91 Unspecified atrial fibrillation; I10 Essential (primary) hypertension; G47.00 Insomnia, unspecified
CPT/HCPCS: 36415; 80053; 80307; 85027; 86780; Q0162